=== PATIENT | male | born 1930 | race Caucasian/White ===

== ENCOUNTER 2017-03-21 23:00 | Inpatient (IN) ==
[2017-03-22 00:07] LABS: MANUAL DIFF NEEDED? NO
[2017-03-22 00:13] LABS: URINE SOURCE CATH
[2017-03-22 00:18] LABS: BASO% 0.3 % (0.0-0.8); EOS# 0.01 X1000 (0.0-0.7); EOS% 0.1 % (0.0-10.0); IMM GRAN# 0.09 X1000 (0.0-0.04); IMM GRAN% 0.5 % (0.0-0.5); LYMPH% 9.8 % (20.5-51.1); MCH 30.7 PG (27-31); MCHC 34.8 g/dL (33-37); MCV 88.3 FL (81-99); MONO# 1.62 X1000 (0.11-0.59); MONO% 9.3 % (1.7-9.3); MPV 10.2 FL (7.4-10.4); PLT 258 X1000 (130-400); RBC 5.21 XMIL (4.7-6.1)
[2017-03-22 00:34] LABS: CLARITY GROSS BLOOD (CLEAR); COLOR RED; URINE EPITHELIAL CELLS <10 /HPF (<10); URINE RBC TNTC /HPF (<10); URINE WBC <10 /HPF (<10)
[2017-03-22 00:35] LABS: BILIRUBIN URINE NEGATIVE (NEGATIVE); BLOOD URINE LARGE (NEGATIVE); GLUCOSE URINE NEGATIVE (NEGATIVE); PROTEIN URINE >=300 mg/dL (NEGATIVE)
[2017-03-22 00:36] LABS: LEUKOCYTES URINE NEGATIVE (NEGATIVE); NITRITE URINE NEGATIVE (NEGATIVE); URINE CULTURE NEEDED? YES; UROBILINOGEN URINE 0.2 EU/dL (0.2-1.0)
[2017-03-22 00:45] LABS: AGAP 24; ALBUMIN 3.6 g/dL (3.5-5.0); ALKALINE PHOSPHATASE 111 U/L (32-122); BUN 19 mg/dL (8-22); CALCIUM 8.7 mg/dL (8.8-10.2); CHLORIDE 92 mmol/L (98-107); COSMO 291; GOT 11 U/L (10-34); GPT 11 U/L (10-44); POTASSIUM 4.2 mmol/L (3.5-5.1); SODIUM 133 mmol/L (136-145); TCO2 17 mmol/L (25-35); TOTAL BILIRUBIN 0.57 mg/dL (0.20-1.00); TOTAL PROTEIN 6.9 g/dL (6.3-8.3)
[2017-03-22] MEDS ORDERED: HUMULIN R IV ONE ×2 (02:29→06:06)
--- NOTE | 2017-03-22 02:31 | PROVIDER DOCUMENTATION ---
This chart was entered by Zac Nava Scribe, acting as scribe for Stanislaw Reyes MD. HPI-Male Problem - General Stated Complaint: NEW CATH PLACEMENT, BLEEDING Time Seen by Provider: 03/21/17 23:06 Source: patient Allergies/Adverse Reactions: Patient Allergies Allergy/AdvReac Type Severity Reaction Status Date / Time No Known Allergies Allergy Verified 03/22/17 00:15 Home Medications: Home Medication List Medication Instructions Recorded Confirmed Last Taken Type Aspirin 81 mg PO DAILY 11/10/12 03/22/17 03/21/17 History Glimepiride 1 mg PO DAILY 11/10/12 03/22/17 03/21/17 History Magnesium Oxide [Magnesium] 400 mg PO DAILY 11/10/12 03/22/17 03/21/17 History ATORVAstatin [Lipitor] 10 mg PO QHS 03/09/15 03/22/17 03/21/17 History Quinapril HCl 40 mg PO DAILY 03/09/15 03/22/17 03/21/17 History Clopidogrel [Plavix] 75 mg PO DAILY #1 04/20/15 03/22/17 03/21/17 Rx Meloxicam 7.5 mg PO DAILY #1 04/20/15 03/22/17 03/21/17 Rx - History of Present Illness-Male Nature of Presenting Problem: Pt is a 86 yom who presents to ER with CC of lower abdominal pain and blood coming from penis. Pt reports that his home health nurse changed his suprapubic catheter today at 1500 and pt has since developed lower abdominal pain and blood coming from penis. Pt also complains of fever. Location of Complaint: reports: suprapubic Radiation: reports: none Quality of Pain: reports: aching Severity in ED: reports: moderate Onset/Duration: reports: 4-6 hours ago Timing: reports: still present Urinary Symptoms: reports: other (low abdominal pain; blood coming from penis) Associated Symptoms: reports: fever/chills, other (abdominal pain; blood coming from penis). denies: anxiety, back/neck pain, chest pain, constipation, cough, diarrhea, fatigue, joint pain, loss of appetite, muscle aches, nausea, vomiting , weakness, trouble walking Similar Symptoms Previously?: Yes Recently seen or treated by another doctor?: No Review of Systems - Adult - REVIEW OF SYSTEMS - ADULT Constitutional: reports: fever. denies: chills, fatique, night sweats, weight gain, weight loss Eyes: reports: no symptoms reported Ears, Nose, Mouth & Throat: reports: no symptoms reported Cardiovascular: reports: no symptoms reported Respiratory: reports: no symptoms reported Gastrointestinal: reports: abdominal pain. denies: hematemesis, constipation, diarrhea, difficulty swallowing, frequent heartburn, nausea, poor appetite, rectal bleeding, vomiting Genitourinary: reports: hematuria (Pt reports blood coming from penis, not associated with urination). denies: dysuria, discharge, frequency, flank pain, frequent UTI's, hesitency, incontinence, urinary retention, urgency Musculoskeletal: reports: no symptoms reported Integumentary: reports: no symptoms reported Neurological: reports: no symptoms reported Psychiatric: reports: no symptoms reported Endocrine: reports: no symptoms reported Hematologic/Lymphatic: reports: no symptoms reported Allergic/Immunologic: reports: no symptoms reported All Other Systems: Reviewed and Negative Past History - Adult - PAST MEDICAL HISTORY-ADULT Review of Records: reports: Nursing Assessment Review, Medications Reviewed Cardiovascular: reports: CAD, HTN, hyperlipidemia, [place] Genitourinary: reports: prostatitis, prostate cancer, retention Neurological: reports: CVA Endocrine/Immune: reports: Diabetes - PRIOR SURGERIES/PROCEDURES Surgical/Procedure History: reports: tonsillectomy, CABG, cholecystectomy - IMMUNIZATION STATUS Childhood Immunizations: See Nurse Assessment Flu Vaccine: See Nurse Assessment - FAMILY HISTORY Family History: reviewed, not pertinent Physical Exam-General - PHYSICAL EXAM-ADULT Initial Vital Signs Reviewed: Yes - CONSTITUTIONAL General Appearance: appears well, alert, mild distress - EYES Eyes: PERRL/EOMI, pink conjunctivae - HEAD, EARS, NOSE, MOUTH & THROAT HENMT: normocephalic/atraumatic, moist mucous membranes, normal ENT inspection, TMs normal, pharynx normal. negative: pharyngeal erythema, tonsillar exudate - NECK Neck: non-tender, full range of motion, supple, normal inspection. negative: C- spine tenderness, limited range of motion, lymphadenopathy - RESPIRATORY Respiratory: chest non-tender, lungs clear, normal breath sounds, no pleuratic chest pain, no respiratory distress, no accessory muscle use. negative: respiratory distress, decreased breath sounds, accessory muscle use, wheezing - CARDIOVASCULAR Cardiovascular: normal peripheral pulses, regular rate, rhythm. negative: bradycardia, tachycardia, irregularly irregular - GASTROINTESTINAL (ABDOMEN) Abdominal Exam: normal bowel sounds, soft, no organomegaly, no pulsatile mass, tenderness (suprapubic). negative: non tender, distended - GENITOURINARY Male Genitalia: other (blood coming from penis) - LYMPHATIC Lymphatic: no adenopathy - MUSCULOSKELETAL Back Exam: normal inspection, no CVA tenderness, no vertebral tenderness. negative: CVA tenderness, vertebral tenderness Extremity: normal range of motion, non-tender, normal gait, normal inspection, no pedal edema, no calf tenderness, normal capillary refill, pelvis stable. negative: deformity, erythema, inflammation, swelling, tenderness - SKIN Integumentary: normal color, normal turgor, warm/dry. negative: abrasion(s), diaphoresis, ecchymosis, erythema, laceration(s), swelling, tenderness, warm - NEUROLOGIC Neurologic: hand hide stretcher II-XII nml as tested, grossly normal, no motor/sensory deficits . negative: facial droop, focal weakness, motor weakness, sensory deficit - PSYCHIATRIC Psych/Mental Status: normal mood/affect, normal thought content, normal thought process, oriented x 3 Progress - PLAN OF CARE/RESULTS Progress/Plan/Lab Results: Vital Signs - 8 hr 03/21/17 23:18 Temperature 98.2 F Pulse Rate 63 Respiratory Rate 20 Blood Pressure 162/87 O2 Sat by Pulse Oximetry 97 Laboratory Results - last 24 hr 03/22/17 03/22/17 03/22/17 00:01 00:01 00:01 WBC 17.37 H RBC 5.21 Hgb 16.0 Hct 46.0 MCV 88.3 MCH 30.7 MCHC 34.8 RDW Std Deviation 13.1 Plt Count 258 MPV 10.2 Immature Gran % (Auto) 0.5 Neut % (Auto) 80.0 H Lymph % (Auto) 9.8 L [place] % (Auto) 9.3 Eos % (Auto) 0.1 Baso % (Auto) 0.3 Immature Gran # (Auto) 0.09 H Neut # (Auto) 13.89 H Lymph # (Auto) 1.70 [place] # (Auto) 1.62 H Eos # (Auto) 0.01 Baso # (Auto) 0.06 Sodium 133 L Potassium 4.2 Chloride 92 L Carbon Dioxide 17 L Anion Gap 24 BUN 19 Creatinine 1.0 Estimated GFR/1.73 m2 > 60 BUN/Creatinine Ratio 19 Glucose 508 H* Calculated Osmolality 291 Calcium 8.7 L Total Bilirubin 0.57 AST 11 ALT 11 Alkaline Phosphatase 111 Total Protein 6.9 Albumin 3.6 Globulin 3.3 Albumin/Globulin Ratio 1.1 Urine Source Urine Color Urine Clarity Urine pH Ur Specific [place] Urine Protein Urine Ketones Urine Blood Urine Nitrite Urine Bilirubin Urine Urobilinogen Urine Microscopic RBC Urine WBC Urine Microscopic WBC Ur Epithelial Cells Urine Bacteria Urine Yeast Urine Glucose Acetone Level SMALL A 03/22/17 00:04 WBC RBC Hgb Hct MCV MCH MCHC RDW Std Deviation Plt Count MPV Immature Gran % (Auto) Neut % (Auto) Lymph % (Auto) [place] % (Auto) Eos % (Auto) Baso % (Auto) Immature Gran # (Auto) Neut # (Auto) Lymph # (Auto) [place] # (Auto) Eos # (Auto) Baso # (Auto) Sodium Potassium Chloride Carbon Dioxide Anion Gap BUN Creatinine Estimated GFR/1.73 m2 BUN/Creatinine Ratio Glucose Calculated Osmolality Calcium Total Bilirubin AST ALT Alkaline Phosphatase Total Protein Albumin Globulin Albumin/Globulin Ratio Urine Source CATH Urine Color RED Urine Clarity GROSS BLOOD A Urine pH 7.0 Ur Specific [place] 1.020 Urine Protein >=300 A Urine Ketones 15 A Urine Blood LARGE A Urine Nitrite NEGATIVE Urine Bilirubin NEGATIVE Urine Urobilinogen 0.2 Urine Microscopic RBC TNTC A Urine WBC NEGATIVE Urine Microscopic WBC <10 Ur Epithelial Cells <10 Urine Bacteria NEGATIVE Urine Yeast NONE SEEN Urine Glucose NEGATIVE Acetone Level Orders Category Date Time Status CT ABD/PELVIS W/ IV CONT ONLY [CT] Stat Exams 03/21/17 23:15 Taken BLOOD CULTURE [BLDCUL] Stat Lab 03/22/17 02:28 Uncollected CBC WITH ELECTRONIC DIFF [HEME] Stat Lab 03/22/17 00:01 Completed COMPREHENSIVE METABOLIC PANEL [CHEM] Stat Lab 03/22/17 00:01 Completed Ketone [ACETONE SERUM] [CHEM] Stat Lab 03/22/17 00:01 Completed LACTATE, PLASMA [CHEM] Stat Lab 03/22/17 02:28 Uncollected URINE CULTURE [RM] Routine Lab 03/22/17 00:36 Received 0.9% Sodium Chloride Inj [Ns] 99 ml Med 03/22/17 02:29 Ordered Insulin Human Regular [Humulin R] 100 unit IV Per Protocol Insulin Human Regular [Humulin R] Med 03/22/17 02:29 Once 5 unit IV NOW ONE Result Diagrams: 03/22/17 00:01 03/22/17 00:01 - CT/MRI 1 CT Study: Abdomen, Pelvis Impression: See EMR Report (Indeterminate area of hypoenhancement within the right mid to upper renal medullary tissue. The etiology is indeterminate. Extensive gas within the urinary bladder is indeterminate. Infection is not excluded. Additional nonacute findings listed in report. - Dr. Martin ( Radiologist)) CT Results: See report - CONSULTS/PCP/HOSPITALIST Notification #1 *Consult/PCP/Hospitalist*: Dr. Em (Hospitalist) Time Discussed: 02:26 Consult Disposition: Admit Departure - Departure Date of Disposition Decision: 03/22/17 Time of Disposition Decision: 02:30 DIAGNOSIS: Hematuria DKA (diabetic ketoacidoses) Qualifiers: Diabetes mellitus type: type 1 Diabetes mellitus complication detail: without coma Qualified Code(s): E10.10 - Type 1 diabetes mellitus with ketoacidosis without coma Disposition: ADMITTED INPATIENT 09 Certified Medical Emergency: Emergent Condition: Good Referrals and Follow-Ups: Chino Cervantes [Primary Care Provider] - - Critical Care Note This patient required my direct & personal management of CC.: No This chart was documented by the indicated scribe, (Zac Nava Scribe) and accurately reflects the services I performed and decisions made by me, Stanislaw Reyes MD, as attested by the provider's signature.
[2017-03-22] MEDS ORDERED: NS 1,000 ML IV ONE (02:45)
[2017-03-22] MEDS ORDERED: HUMULIN R 100 UNIT in NS 100 ML IV SCH (03:00)
[2017-03-22] MEDS: ROCEPHIN 1 GM/NS 1 GM/50 ML IVPB IV SCH (03:15)
[2017-03-22 03:20] LABS: ALLEN TEST YES; BE -6.4 mmoll (-3.0-3.0); BLOOD TYPE ARTERIAL; DRAW SITE R RADIAL; METHB 0.8 % (0.0-1.5); O2(CT) 20.4 mL/dL (15.0-23.0); PCO2(98.6) 28 mmHg (35-45); PO2(98.6) 71 mmHg (60-100); SAMPLE BLOOD; THB 15.5 g/dL (11.5-17.4); pH(98.6) 7.39 (7.35-7.45)
[2017-03-22 03:22] LABS: MODALITY ROOM AIR
[2017-03-22 03:25] LABS: HEMOGLOBIN A1C 11.6 % (4.8-6.0)
[2017-03-22] MEDS ORDERED: ZOFRAN IV PRN (03:55)
[2017-03-22] MEDS ORDERED: TYLENOL PO PRN (03:55)
--- NOTE | 2017-03-22 04:44 | HISTORY AND PHYSICAL ---
PRIMARY CARE PROVIDER: Chino Cervantes MD CHIEF COMPLAINT: Bleeding in urine. 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 Dunn, I believe, had a suprapubic catheter placed. This was post to be temporary. However, it has not been reversed as he started having pressure ulcers on his sacrum. These are healing, but they have chosen to leave the suprapubic catheter in at this time. Patient lives at home alone but has 24-hour caregivers. He reportedly had a home health nurse come out today and change his suprapubic catheter at around 3. He started having lower abdomen pain, started having bleeding from the catheter site as well as coming from his urethra. He had a subjective complaint of fever and was being treated for a urinary tract infection. A urine sample was taken by the home health nurse but results were not given at this time. A urine was tested in the emergency room but it was noted to have gross hematuria. A CT scan of the abdomen and pelvis noted an indeterminate area of hypoenhancement within the right mid to upper renal medullary tissue. Etiology is undetermined. There was also extensive gas within the urinary bladder, which is indeterminate. Infection could not be excluded. The patient was also noted as having a blood sugar in the 500s on arrival, with a small amount of acetone. An ABG is pending, but he will be admitted for further evaluation and treatment. PAST MEDICAL HISTORY: 1. Coronary artery disease status post CABG. 2. CVA with residual right-sided weakness. 3. Diabetes mellitus type 2. 4. Hypertension. 5. Hyperlipidemia. 6. BPH, status post surgical intervention. PREVIOUS SURGICAL HISTORY: 1. CABG x2. 2. Prostate surgery. 3. Suprapubic catheter placement. 4. Right hip surgery. 5. Cholecystectomy. FAMILY HISTORY: The patient had a brother who from prostate cancer. I was unable to collect any other family history. SOCIAL HISTORY: Lives alone in [place] with 24-hour caregivers. Does not use alcohol or illicit drugs. Stopped smoking cigarettes 20 years ago. Does use chewing tobacco daily. ALLERGIES: No known drug allergies. HOME MEDICATIONS: 1. Magnesium 400 mg p.o. daily. 2. Glimepiride 1 mg p.o. daily. 3. Aspirin 81 mg p.o. daily. 4. Lipitor 10 mg p.o. at bedtime. 5. Quinapril HCl 40 mg p.o. daily. 6. Meloxicam 7.5 mg p.o. daily. 7. Plavix 75 mg p.o. daily. REVIEW OF SYSTEMS: Fourteen point review of systems conducted with the patient. Pertinent positives listed above in the HPI. All other systems reviewed and found to be negative. PHYSICAL EXAMINATION: VITAL SIGNS: Temperature 98.2 degrees, pulse 63, respirations 20, blood pressure 162/87, oxygen saturation 97% on room air. GENERAL: A pleasant 86-year-old male. Daughter is at the bedside. Answers most questions appropriately and is in no acute distress. HEENT: Head is atraumatic, normocephalic. Pupils equal, round, react to light. Extraocular eye movement intact. Sclerae is anicteric. Conjunctivae is pink. Oral mucosa is dry. NECK: Supple. No JVD. Trachea is midline. No thyromegaly. CARDIAC: S1-S2 appreciated. No murmurs, gallops, rubs. LUNGS: Clear to auscultation bilaterally. No rhonchi, wheezes or rales. Symmetrical rise and fall with respirations. ABDOMEN: Soft, nondistended. Tender in the suprapubic area around the catheter. Blood noted around the catheter which has gauze around it. Bowel sounds noted in all 4 quadrants. Normoactive. No pulsatile mass. No organomegaly. EXTREMITIES: No clubbing, cyanosis, or edema. GENITOURINARY: Suprapubic catheter. Draining bright red blood. Blood was also noted coming out of the urethra. EXTREMITIES: No clubbing, cyanosis, or edema. NEUROLOGICAL: Oriented to person, place, and situation. Cranial nerves 2-12 appear to be grossly intact. DIAGNOSTIC DATA: CT of the abdomen and pelvis showed an indeterminate area of hypoenhancement within the right mid to upper renal medullary tissue. The etiology is indeterminate. Extensive gas within the urinary bladder is indeterminate. Infection is not excluded. LABORATORY DATA: WBC 7.37, hemoglobin 16, hematocrit 46, platelet count 258,000. ABG is pending. Sodium 133, potassium 4.2, chloride 92, carbon dioxide 17, BUN 19, creatinine 1, glucose 509, hemoglobin A1c 11.6. Urine was noted to be gross bleeding, 15 ketone bodies, greater than 300 protein, too numerous to count RBCs, a small amount of acetone. ASSESSMENT AND PLAN: 1. Gross hematuria after having a suprapubic catheter placed. The patient's urologist is Dr. Dunn, we will consult him. Recheck hemoglobin and hematocrit in a.m. 2. Diabetes mellitus type 2 with hyperglycemia. Patient's blood sugar was noted to be over 500 on arrival. Arterial blood gases is pending. He does have small amounts of acetone and 15 ketone bodies. However, it is doubtful that he is in diabetic ketoacidosis more likely hyperosmolar hyperglycemic state or very early diabetic ketoacidosis. At any rate, he will be started on an insulin drip and placed in the intensive care unit. Normal saline will given for fluid repletion. 3. Hypertension. Continue home medications. 4. Hyperlipidemia. Continue home medication. 5. Questionable urinary tract infection. There was no bacteria noted in the urine sample. However, it was also noted to be grossly bloody. Patient does have leukocytosis. We will start on Rocephin at this time. He was being treated outpatient for a urinary tract infection. Further recommendations per patient clinical course. Dictated by KANIKA Jiménez for Fede Em MD cc: KANIKA Jiménez MD Jay Pohl, MD
[2017-03-22] MEDS ORDERED: NS 1,000 ML IV SCH (05:35)
[2017-03-22] MEDS ORDERED: D50W SYRINGE IV PRN (06:06)
[2017-03-22] MEDS ORDERED: POTASSIUM CHLORIDE 20 MEQ in NS 100 ML IV PRN (06:06)
[2017-03-22] MEDS ORDERED: POTASSIUM CHLORIDE 40 MEQ in NS 250 ML IV PRN (06:06)
[2017-03-22] MEDS ORDERED: MAGNESIUM SULFATE 2 GM/S.W.I. 2 GM/50 ML IVPB IV PRN (06:06)
[2017-03-22] MEDS ORDERED: HUMULIN R 100 UNIT in NS 99 ML IV SCH (06:06)
[2017-03-22] MEDS ORDERED: ZOFRAN PO PRN (06:06)
[2017-03-22] MEDS ORDERED: SODIUM PHOSPHATE 30 MMOL in D5W 250 ML IV PRN (06:06)
[2017-03-22] MEDS ORDERED: TYLENOL PR PRN (06:06)
--- NOTE | 2017-03-22 06:33 | Diag Imaging Result Doc PS360 ---
EXAM: CT ABD/PELVIS W/ IV CONT ONLY HISTORY: SUPRAPUBIC REPLACED, NOW HEMATURIA, BLOOD FROM PEN TECHNIQUE: Dose reduction protocol COMPARISON: 03/11/2015 FINDINGS: There is fatty infiltration of the liver. The gallbladder has been removed. Spleen is not enlarged. Normal pancreas and adrenal glands. There areas within each kidney with decreased enhancement. Mild dilatation to each ureter. No renal stones. Prominent atherosclerosis. No aneurysmal dilatation to the aorta. There is a suprapubic catheter. There is a large amount of adherent debris within the urinary bladder. Trace free pelvic fluid. There are fat filled inguinal hernias. No bowel loops within these. No bowel obstruction. Normal appendix. No abscess. Prior orthopedic replacement of the right hip. 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 2.Prominent atherosclerosis 3.Mild fatty infiltration of the liver 4.Prominent atherosclerosis 5.Bilateral fat filled inguinal hernias 6.A preliminary report was given at 2:11 AM Electronically signed by Francisco Chong 03/22/2017 6:31 AM
[2017-03-22] MEDS: NS 1,000 ML IV SCH ×6 (06:34→18:39)
[2017-03-22 06:53] LABS: MANUAL DIFF NEEDED? NO
[2017-03-22 06:56] LABS: BASO% 0.1 % (0.0-0.8); HEMATOCRIT 41.1 % (42.0-52.0); HEMOGLOBIN 14.3 g/dL (14.0-18.0); IMM GRAN# 0.04 X1000 (0.0-0.04); IMM GRAN% 0.3 % (0.0-0.5); LYMPH# 2.55 X1000 (1.2-3.4); LYMPH% 21.6 % (20.5-51.1); MCH 30.4 PG (27-31); MCHC 34.8 g/dL (33-37); MCV 87.4 FL (81-99); MONO% 7.6 % (1.7-9.3); NEUT% 70.4 % (42.2-75.2); PLT 224 X1000 (130-400)
[2017-03-22 07:08] LABS: AGAP 17; BUN 18 mg/dL (8-22); CALCIUM 8.1 mg/dL (8.8-10.2); CHLORIDE 97 mmol/L (98-107); COSMO 281; POTASSIUM 3.9 mmol/L (3.5-5.1); SODIUM 134 mmol/L (136-145); TCO2 20 mmol/L (25-35)
[2017-03-22 07:09] LABS: MAGNESIUM 1.9 mg/dL (1.5-2.7)
[2017-03-22] MEDS ORDERED: ASPIRIN PO SCH (09:00)
[2017-03-22] MEDS ORDERED: PLAVIX PO SCH (09:00)
[2017-03-22] MEDS: ACCUPRIL PO SCH (09:17)
[2017-03-22] MEDS: MAG-OX PO SCH (09:17)
[2017-03-22 10:05] LABS: AGAP 17; BUN 19 mg/dL (8-22); CHLORIDE 100 mmol/L (98-107); COSMO 278; POTASSIUM 4.6 mmol/L (3.5-5.1); SODIUM 134 mmol/L (136-145); TCO2 17 mmol/L (25-35)
--- NOTE | 2017-03-22 15:30 | CONSULTATION ---
DATE OF CONSULTATION: 03/22/2017 ATTENDING AND REFERRING PHYSICIAN: Hospitalist. HISTORY OF PRESENT ILLNESS: This 86-year-old male has a history of a neurogenic bladder. This was initially put in about 2 years ago. He had a suprapubic tube placed about 2 years ago. This is changed monthly by home health. The patient states it was last changed about 2 days ago when he developed bleeding. He states there is blood coming out around the catheter, through the catheter and through his penis. He states he has severe urgency and has a urge to have a bowel movement. He states he has not seen any blood in his stool. The patient is on Plavix. PAST MEDICAL HISTORY: Coronary artery disease, diabetes, hypertension, elevated cholesterol, peripheral vascular disease. CURRENT MEDICATIONS: Documented on the chart and include Flomax, Plavix and 81 mg of aspirin each day. PAST SURGICAL HISTORY: Cholecystectomy, right hip replacement, right CEA, coronary artery bypass grafting, transurethral resection of the prostate and placement of a suprapubic tube in April 2015. SOCIAL HISTORY: He denies cigarette use but chews tobacco. He denies alcohol use. ALLERGIES: No known drug allergies. REVIEW OF SYSTEMS: He states usually he feels well. He denies any problems with pulmonary or bowel problems. He did have a stroke and has some residual weakness but overall was doing well until 2 days ago. PHYSICAL EXAMINATION: General: A normally developed, well-nourished, age apparent, white male, oriented in all ways and cooperative. HEENT: Normal for age. Lungs: Clear. Cardiovascular: Regular rate and rhythm. Abdomen: Mildly obese, soft. There is a suprapubic tube in place with blood around the suprapubic tube and blood through the suprapubic tube. There are no palpable masses. : Uncircumcised male. Foreskin retracts. Both testes are down. There is a clot at the urethral meatus. No inguinal hernias noted. Rectal Exam: Deferred until surgery. Extremities: No clubbing, cyanosis, or edema. Neuro: No focal deficits. DIAGNOSTIC DATA: CT scan of the abdomen does not show any hydronephrosis. However there is material inside the bladder probable blood clot with air. The suprapubic tube is in place in the bladder. LABORATORY EVALUATION: Has a white count of 11.78, hemoglobin of 14.3, hematocrit of 41.1, platelets are 224,000 but the patient has been taking Plavix. Serum electrolytes have a sodium of 134, potassium 4.6, chloride 100, bicarb 17, BUN 19, creatinine 0.8. Serum blood sugar at admission was 508. The most recent fingerstick was 206. Urinalysis had too numerous to count red cells, no white cells present. Bacteria was negative. IMPRESSION: 1. Clot retention probably due to anticoagulation. 2. Neurogenic bladder with indwelling suprapubic tube. PLAN: Cystoscopic exam, clot irrigation. Fulgurate any bleeding areas. The planned procedure, benefits versus risks, and possible complications, including, but not limited to continued bleeding, infection, not finding a source of bleeding, need for further surgery was discussed. He seems to understand and desires to proceed. cc: Antonio Dunn MD
[2017-03-22] MEDS ORDERED: FENTANYL ONE (15:36)
[2017-03-22] MEDS ORDERED: DIPRIVAN 1% ONE (15:36)
--- NOTE | 2017-03-22 15:42 | OPERATIVE NOTE ---
PROCEDURE DATE: 03/22/2017 SURGEON: Antonio Dunn MD PREOPERATIVE DIAGNOSIS: Neurogenic bladder with clot retention and anticoagulated. POSTOPERATIVE DIAGNOSIS: Neurogenic bladder with clot retention and anticoagulated. PROCEDURE PERFORMED: 1. Cystoscopic exam, clot irrigation, fulguration of bleeding areas. 2. Change suprapubic tube. ANESTHESIA: General via laryngeal mask. FINDINGS: Cystoscopic exam: Urethra-greater than 21 [place]ese without stricture. Prostate-status post TURP with wide open channel, minimal lateral lobes, mildly elevated bladder neck. Bladder- large amount of clot old and new in the bladder. After the relative new clot was irrigated out, ureteral orifices were normal, grade 3 trabeculations, cellules and diverticula throughout. There was still a large amount of old clot in the bladder they could not be easily removed. There were diffuse bleeding areas throughout secondary to his anticoagulation. Many of these were fulgurated where bleeding vessels could be seen. The old suprapubic tube was removed and a new 20- [place]ese silicone Vila was placed. No papillary lesions seen. There was still a large amount of old rubbery clot clinging to the dome and anterior wall that could not be removed. After his platelets recover will bring him back to fully remove all clots using the resectoscope. Rectal exam revealed a prostate of about 30-40 g with a TURP defect in the midline at the base. INDICATION FOR PROCEDURE: This 86-year-old male has a history of neurogenic bladder. He also has coronary artery and peripheral vascular disease. He is on Plavix. The patient states that 2 days ago he developed increased gross hematuria and then clot retention. He has a large amount of suprapubic pain and states he has needs to have the clot removed. DESCRIPTION OF PROCEDURE: After informed consent was obtained from the patient and him receiving IV antibiotics, he was taken to the main OR cystoscopy room, placed in the supine position. General anesthesia via laryngeal mask was achieved. He was then placed in low lithotomy position and prepped and draped in the usual sterile fashion for cystoscopic exam. A 21-Tai[place]ese sheath cystoscope was passed through the patient's urethra, prostate, and into the bladder. The large amount of clot was irrigated from the bladder. The old rubbery clot partially was removed using the grasping forceps. The patient had diffuse oozing throughout. The Bugbee electrode was placed and hemostasis was somewhat achieved from any bleeding vessels that were seen on the posterior wall both upper and lower and close to the suprapubic tube. The Bugbee electrode was placed. The suprapubic tube was changed under direct vision and a new 20-[place]ese silicone catheter was placed, 10 mL of sterile water were placed in the Vila balloon. The Vila catheter was plugged. The bladder was distended, the cystoscope removed. A 22-Tai[place]ese, 3-way silicone Vila was passed through the patient's urethra, prostate, and bladder without difficulty. 20 mL of sterile water were placed in this balloon. Continuous bladder irrigation of normal saline was started going in through the suprapubic tube and out the bottom catheter. The irrigation port on the urethral catheter was plugged. A rectal exam was performed. He tolerated the procedure well. About 300 mL of old clot was removed from the bladder. The blood loss during the case was about 25 mL. He tolerated procedure well and was taken to recovery room in good condition. cc: Antonio Dunn MD
[2017-03-22] MEDS ORDERED: LOPRESSOR PO ONE (18:02)
[2017-03-22] MEDS: NORCO-10 PO PRN (18:09)
[2017-03-22 18:48] LABS: AGAP 17; BUN 20 mg/dL (8-22); CALCIUM 7.5 mg/dL (8.8-10.2); CHLORIDE 102 mmol/L (98-107); COSMO 282; POTASSIUM 3.3 mmol/L (3.5-5.1); SODIUM 139 mmol/L (136-145); TCO2 20 mmol/L (25-35)
[2017-03-22] MEDS: D5 NS 1,000 ML IV PRN (19:04)
[2017-03-22] MEDS ORDERED: CARDIZEM 100 MG/NS 100 MG/100 ML IVPB IV SCH (19:32)
[2017-03-22 22:28] LABS: AGAP 14; BUN 20 mg/dL (8-22); CALCIUM 7.2 mg/dL (8.8-10.2); CHLORIDE 104 mmol/L (98-107); COSMO 294; POTASSIUM 3.1 mmol/L (3.5-5.1); SODIUM 140 mmol/L (136-145); TCO2 22 mmol/L (25-35)
[2017-03-23] MEDS: LIPITOR PO SCH ×2 (00:31→23:33)
[2017-03-23] MEDS: NORCO-10 PO PRN (00:31)
[2017-03-23] MEDS: D5 NS 1,000 ML IV PRN ×2 (01:24→08:36)
[2017-03-23] MEDS: NS 1,000 ML IV SCH ×4 (02:49→23:33)
[2017-03-23] MEDS: ROCEPHIN 1 GM/NS 1 GM/50 ML IVPB IV SCH (02:49)
[2017-03-23 04:40] LABS: AGAP 13; BUN 22 mg/dL (8-22); CALCIUM 7.4 mg/dL (8.8-10.2); CHLORIDE 103 mmol/L (98-107); COSMO 286; SODIUM 138 mmol/L (136-145); TCO2 22 mmol/L (25-35)
[2017-03-23 06:41] LABS: AGAP 14; BUN 25 mg/dL (8-22); CALCIUM 7.3 mg/dL (8.8-10.2); CHLORIDE 105 mmol/L (98-107); COSMO 292; POTASSIUM 4.3 mmol/L (3.5-5.1); SODIUM 141 mmol/L (136-145); TCO2 22 mmol/L (25-35)
[2017-03-23 06:52] LABS: BASO% 0.1 % (0.0-0.8); HEMATOCRIT 35.7 % (42.0-52.0); HEMOGLOBIN 12.1 g/dL (14.0-18.0); IMM GRAN# 0.45 X1000 (0.0-0.04); IMM GRAN% 2.3 % (0.0-0.5); LYMPH# 1.46 X1000 (1.2-3.4); LYMPH% 7.4 % (20.5-51.1); MANUAL DIFF NEEDED? YES; MCH 30.6 PG (27-31); MCHC 33.9 g/dL (33-37); MCV 90.4 FL (81-99); MONO# 1.11 X1000 (0.11-0.59); MONO% 5.6 % (1.7-9.3); NEUT% 84.6 % (42.2-75.2); PLT 182 X1000 (130-400); RBC 3.95 XMIL (4.7-6.1)
[2017-03-23 07:52] LABS: BANDS 30 % (0-1); LYMPHS 12 % (21-51); MONO 2 % (1-9)
[2017-03-23] MEDS: ACCUPRIL PO SCH (08:46)
[2017-03-23] MEDS: MAG-OX PO SCH (08:47)
[2017-03-23] MEDS ORDERED: LOPRESSOR PO SCH (09:00)
--- NOTE | 2017-03-23 10:15 | PROGRESS NOTE ---
DATE: 03/23/2017 SUBJECTIVE: Patient reports feeling fine. Denies any fever, chills, nausea, or vomiting. OBJECTIVE: Vital Signs: Temperature 98 degrees, heart rate 83, respiratory rate 16, blood pressure 111/57, O2 saturation 97% on room air. General Examination: This is an 86-year-old, male, lying in bed, in no acute distress. HEENT: Head is normocephalic and atraumatic. Anicteric sclerae and pale conjunctivae. Mucous membranes moist. Neck: Supple. No JVD noted. No carotid bruits. No lymphadenopathy. No thyromegaly. Cardiovascular Examination: S1 and S2 heard. No murmurs, gallops, or rubs. Tachycardic. Respiratory Examination: Clear bilaterally to auscultation. No work of breathing or using accessory muscles. Abdomen: Soft. Nontender to palpation. Bowel sounds present. No organomegaly. Suprapubic catheter in place. Extremities: No clubbing, cyanosis, or edema. Peripheral pulses present in both legs. Neurological Examination: Patient is alert and oriented x3. Moves 4 extremities. Laboratory Data: White cell count 19.71, hemoglobin 12.1, hematocrit 35.7, platelets 182,000. BMP is unremarkable except glucose 204. ASSESSMENT/PLAN: 1. Gross hematuria. Patient has been evaluated by Dr. Dunn yesterday. He was taken to the operating room where a cystoscopic examination, clot irrigation, and fulguration of bleeding areas were performed. By now, the patient is not having any hematuria. He is not complaining of any burning on urination. Our plan is to keep him in the hospital until this bleeding resolves. Today, we are going to transfer him to a regular floor. If tomorrow, he is not having any bleeding, from a urology standpoint, patient will be good to be discharged. 2. Mild diabetic ketoacidosis. The anion gap has closed so we are going to start Lantus and also sliding scale insulin. At discharge, patient will be put back to his usual home medications. 3. Sinus tachycardia. Patient yesterday had sinus tachycardia that sometimes was reaching 150s- 160s so he was started on beta-blockers but the blood pressure has dropped dramatically. At this time, we prefer to just stop the other blood pressure medications like quinapril and we will provide tiny doses of metoprolol; in this case, 12.5 mg by mouth twice a day but of course, we will hold dose if blood pressure is lower than 100. 4. Hypertension. Patient's antihypertensive medication has been held. 5. Hyperlipidemia. We will continue home medications. 6. Questionable urinary tract infection. Patient is on ceftriaxone and the urine culture is still pending. cc: Emeterio Gray MD MTDD
[2017-03-23 10:37] LABS: AGAP 12; BUN 25 mg/dL (8-22); CALCIUM 7.2 mg/dL (8.8-10.2); CHLORIDE 105 mmol/L (98-107); COSMO 282; POTASSIUM 4.2 mmol/L (3.5-5.1); SODIUM 137 mmol/L (136-145); TCO2 20 mmol/L (25-35)
[2017-03-23] MEDS: HUMALOG SUBQ SCH ×3 (15:43→23:51)
[2017-03-23] MEDS ORDERED: INSULIN PEN NEEDLES ONE (17:01)
[2017-03-23] MEDS: LANTUS SUBQ SCH (17:16)
[2017-03-23] MEDS: LOPRESSOR PO SCH (23:34)
[2017-03-24] MEDS: ROCEPHIN 1 GM/NS 1 GM/50 ML IVPB IV SCH (04:13)
[2017-03-24 05:39] LABS: MANUAL DIFF NEEDED? NO
--- NOTE | 2017-03-24 05:45 | EKG Report ---
Test Performed on : 03/22/2017 5:40:13 PM Test Reason : No Order in KuponGid Blood Pressure : / mmHG Vent. Rate : 131 BPM Atrial Rate : 117 BPM P-R Int : 000 ms QRS Dur : 130 ms QT Int : 342 ms P-R-T Axes : 000 092 -08 degrees QTc Int : 505 ms Atrial fibrillation. with rapid ventricular response. with premature ventricular or aberrantly condu cted complexes. Right bundle branch block Inferior infarct (cited on or before 22-MAR-2017) T wave abnormality, consider lateral ischemia Abnormal ECG When compared with ECG of 22-MAR-2017 15:25, (Unconfirmed) Atrial fibrillation. has replaced Junctional rhythm. Left anterior fascicular block is no longer present Right bundle branch block is now present Confirmed by Darci DENTON, Rhett Harrison ([id number]) on 03/25/2017 8:33:08 AM
--- NOTE | 2017-03-24 05:45 | EKG Report ---
Test Performed on : 03/22/2017 05:40:34 AM Test Reason : No Order in [place] Blood Pressure : / mmHG Vent. Rate : 120 BPM Atrial Rate : 127 BPM P-R Int : 240 ms QRS Dur : 132 ms QT Int : 362 ms P-R-T Axes : 000 079 007 degrees QTc Int : 511 ms Sinus tachycardia. with 1st degree AV block. Right bundle branch block Possible Inferior infarct , age undetermined Abnormal ECG No previous ECGs available Confirmed by Darci DENTON, Rhett Harrison ([id number]) on 03/25/2017 8:25:42 AM
--- NOTE | 2017-03-24 05:45 | EKG Report ---
Test Performed on : 03/22/2017 3:25:56 PM Test Reason : No Order in ethology Blood Pressure : / mmHG Vent. Rate : 105 BPM Atrial Rate : 071 BPM P-R Int : 000 ms QRS Dur : 102 ms QT Int : 524 ms P-R-T Axes : 000 -48 -06 degrees QTc Int : 692 ms Sinus tachycardia. Left anterior fascicular block Inferior infarct (cited on or before 22-MAR-2017) Prolonged QT Abnormal ECG When compared with ECG of 22-MAR-2017 05:40, (Unconfirmed) Left anterior fascicular block is now present Right bundle branch block is no longer present Confirmed by Darci DENTON, Rhett Harrison ([id number]) on 03/25/2017 8:43:55 AM
[2017-03-24 05:47] LABS: BASO% 0.1 % (0.0-0.8); EOS# 0.12 X1000 (0.0-0.7); EOS% 0.9 % (0.0-10.0); HEMATOCRIT 33.7 % (42.0-52.0); HEMOGLOBIN 11.2 g/dL (14.0-18.0); IMM GRAN# 0.05 X1000 (0.0-0.04); IMM GRAN% 0.4 % (0.0-0.5); LYMPH# 1.57 X1000 (1.2-3.4); LYMPH% 11.8 % (20.5-51.1); MCH 30.4 PG (27-31); MCHC 33.2 g/dL (33-37); MCV 91.3 FL (81-99); MONO# 0.79 X1000 (0.11-0.59); MONO% 5.9 % (1.7-9.3); MPV 10.2 FL (7.4-10.4); NEUT% 80.9 % (42.2-75.2); PLT 164 X1000 (130-400); RBC 3.69 XMIL (4.7-6.1)
[2017-03-24 06:05] LABS: AGAP 10; BUN 20 mg/dL (8-22); CALCIUM 7.2 mg/dL (8.8-10.2); CHLORIDE 106 mmol/L (98-107); COSMO 280; SODIUM 137 mmol/L (136-145); TCO2 21 mmol/L (25-35)
[2017-03-24] MEDS ORDERED: TUMS PO PRN (08:39)
[2017-03-24] MEDS ORDERED: NEO-SYNEPHRINE ONE (09:37)
[2017-03-24] MEDS ORDERED: LR 1,000 ML ONE (09:37)
[2017-03-24] MEDS ORDERED: BREVIBLOC ONE (09:37)
[2017-03-24] MEDS ORDERED: XYLOCAINE-MPF 2% ONE (09:37)
[2017-03-24] MEDS: LOPRESSOR PO SCH (10:01)
[2017-03-24] MEDS: MAG-OX PO SCH (10:01)
[2017-03-24] MEDS: LANTUS SUBQ SCH (10:02)
[2017-03-24 11:07] VITALS: BP 171/79
[2017-03-24] MEDS: HUMALOG SUBQ SCH (11:21)
--- NOTE | 2017-03-25 06:39 | DISCHARGE SUMMARY ---
ADMISSION DATE: 03/22/2017 DISCHARGE DATE: 03/24/2017 CONSULTATIONS: Dr. Antonio Dunn with urology. PERTINENT PROCEDURES: 1. Abdomen and pelvis CT showed bilateral pyelonephritis in addition to emphysematous cystitis, prominent atherosclerosis, mild fatty infiltration of the liver, prominent atherosclerosis, bilateral fat filled inguinal hernias. 2. Cystoscopic exam, clot irrigation, fulguration of bleeding areas, change in suprapubic tube by Dr. Dunn. DISCHARGE DIAGNOSES: 1. Gross hematuria, status post cystoscopic exam, clot irrigation, and fulguration of bleeding areas with change of suprapubic tube performed by Dr. Dunn. Improved. 2. Mild diabetic ketoacidosis. Anion gap is closed. Initiated Lantus on admission. Patient will be discharged back on his usual medications. Resolved. 3. Sinus tachycardia. Continue on home beta sridevi. 4. Hypertension. The patient was actually hypotensive on admission. Will continue on low-dose beta sridevi. His hypotension resolved. He will resume back on his SKYE as well. 5. Questionable urinary tract infection. Continue oral antibiotics. HOSPITAL COURSE: Mr. Greenfield is an 86-year-old male who carries a past medical history of coronary artery disease, status post CABG, CVA with residual right-sided weakness, diabetes mellitus type 2, hypertension, hyperlipidemia, BPH - status post surgical intervention, and suprapubic catheter. The suprapubic catheter was supposed to be temporary. However, it had not been reversed. He started having pressure ulcers on the sacrum that are now healing but they have chosen to leave the suprapubic catheter in. The patient lives at home alone but does have 24 hour caregivers. He reportedly had a home health nurse who came out to change his catheter on the day of his admission. He started having lower abdominal pain with some bleeding from the catheter site as well as coming from his urethra, and subjective complaint of fever, and was being treated for a urinary tract infection. His urine was tested in the emergency room and noted to have gross hematuria. A CT scan of the abdomen and pelvis showed that the patient may have bilateral pyelonephritis in addition to emphysematous cystitis. The patient was admitted with a urology consult. Started on IV antibiotics, as well as IV fluids, as well as sliding scale insulin with patterned sugars. The patient underwent a cystoscopic exam by Dr. Dunn with clot irrigation, fulguration of bleeding areas, and change of suprapubic tube. The patient's hematuria resolved. He was not complaining of any burning or abdominal pain. He was moved out of the ICU to the regular floor. The patient's anion gap closed. He was started on Lantus while he was in the hospital. He will resume his regular medications at home. The patient did have some sinus tachycardia reaching 150s and 160s. He was started on a low-dose beta sridevi but his pressure dropped dramatically. Initially, his quinapril was stopped. His pressures did come back. Again, he was stable enough to go to the floor where he was evaluated overnight. The patient has remained stable. He is appropriate for discharge home today with his regular home health. Vital signs, temperature is 98.2 degrees, heart rate 86, respirations 16, blood pressure 140/73, O2 saturation is 98% on room air. DISCHARGE DIET: Diabetic. DISCHARGE MEDICATIONS: 1. Lipitor 10 mg p.o. at bedtime. 2. Omnicef 300 mg p.o. b.i.d. 3. [place] 10 one each p.o. q.4 hours p.r.n. pain. 4. Lantus 20 units subcutaneous q.a.m. 5. Magnesium 400 mg p.o. b.i.d. 6. Lopressor 25 mg p.o. b.i.d. 7. Quinapril 40 mg p.o. daily. FOLLOWUP: The patient is being discharged home. He will follow up with Dr. Dunn on 03/26/2017 at 1:50 p.m. as well as his primary care physician, Dr. Chino Cervantes, and his home health agency, [facility]. The patient can return to the ED for any worsening of symptoms. Dictated by KANIKA Rojas for Emeterio Gray MD cc: MD Chino Urrutia MD MTDD
== END 2017-03-24 11:27 | disposition home health service (06) ==
LOC: ED 23:00 → SUATTDRO 03-22 03:11 → ICU 03-22 03:11 → 4N 03-23 12:00
PROVIDERS: ATTEND Internal Medicine

== ENCOUNTER 2017-03-27 05:52 | Observation (INO) ==
[2017-03-27] MEDS ORDERED: LR 1,000 ML ONE (06:43)
[2017-03-27] MEDS ORDERED: KEFZOL 2 GM/D5W 2 GM/50 ML IVPB ONE (06:43)
[2017-03-27] MEDS ORDERED: REGLAN ONE (06:43)
[2017-03-27] MEDS ORDERED: PEPCID ONE (06:43)
[2017-03-27 06:47] LABS: HEMATOCRIT 36.8 % (42.0-52.0); HEMOGLOBIN 12.4 g/dL (14.0-18.0); MCH 30.2 PG (27-31); MCHC 33.7 g/dL (33-37); MCV 89.5 FL (81-99); MPV 9.7 FL (7.4-10.4); RBC 4.11 XMIL (4.7-6.1)
[2017-03-27] MEDS ORDERED: LOPRESSOR ONE (07:07)
[2017-03-27 07:09] LABS: AGAP 12; BUN 7 mg/dL (8-22); CALCIUM 8.5 mg/dL (8.8-10.2); CHLORIDE 100 mmol/L (98-107); COSMO 284; SODIUM 139 mmol/L (136-145); TCO2 27 mmol/L (25-35)
[2017-03-27] MEDS: NEOSPORIN G.U. IRRIGANT ONE ×2 (08:21→09:33)
[2017-03-27] MEDS ORDERED: DILAUDID ONE (09:59)
[2017-03-27] MEDS ORDERED: DIPRIVAN 1% ONE (10:00)
[2017-03-27] MEDS ORDERED: FENTANYL ONE (10:00)
--- NOTE | 2017-03-27 10:17 | OPERATIVE NOTE ---
PROCEDURE DATE: 03/27/2017 PREOPERATIVE DIAGNOSIS: History of neurogenic bladder with urinary retention with indwelling suprapubic tube and clot retention. POSTOPERATIVE DIAGNOSES: 1. History of neurogenic bladder with urinary retention with indwelling suprapubic tube and clot retention. 2. Large bladder tumor. PROCEDURE PERFORMED: Cystoscopic exam, transurethral resection of bladder tumor (greater than 5 cm2). SURGEON: Antonio Dunn M.D. ANESTHESIA: General via laryngeal mask. FINDINGS: Cystoscopic exam: Urethra greater than 28-Armenian without stricture. Prostate: Status post TURP with wide open channel. Mildly elevated bladder neck, length approximately 3 cm. Bladder: Normal ureteral orifices bilaterally. Grade 3 trabeculations, cellules, and diverticula throughout. There was a large old clot that was attached to the dome over what appeared to be a large tumor. INDICATION FOR PROCEDURE: This 86-year-old male has a history of neurogenic bladder. He is several years status post TURP with placement of a suprapubic tube. The suprapubic tube has been changed by home health. The patient states he had intermittent gross hematuria for nearly a year. He is on Plavix. The patient developed clot retention, and underwent cystoscopic exam with clot irrigation approximately 5 days ago, at which time the Plavix was stopped. He returns today for repeat cystoscopy. DESCRIPTION OF PROCEDURE: After informed consent was obtained from the patient and daughter, and him receiving IV antibiotics, he was taken to the main OR cystoscopy room, placed in the supine position. General anesthesia via laryngeal mask was achieved. He was then placed in the low lithotomy position, and prepped and draped in the usual sterile fashion for cystoscopic exam. A 21-Armenian cystoscope was passed through the patient's urethra, prostate, and into the bladder. The grasping forceps were placed, and this clot was so large that it could not be grasped out with the grasping forceps. It was so rubbery, it would not irrigate through the cystoscope. The cystoscope was removed. The 28-Armenian continuous flow resectoscope sheath was placed. The thin gyrus loop electrode was placed, and hemostasis was achieved through the prostatic urethra and trigone area, staying away from the ureteral orifices. The large clot was resected, and as it got closer to the bladder dome, it appeared like it was tissue. Approximately 3/4 of the amount were removed, when it was decided to return in 24 hours to allow his platelets to recover more. The amount of clot\tumor that was removed was significant, greater than 5 cm in diameter. There is still a large amount left. This could be a bladder tumor. The part that was resected was sent to Pathology. The suprapubic tube had normal saline attached, such that saline would go in the suprapubic tube, and a 22-Armenian 2-way Vila was passed through the patient's urethra, prostate, and into the bladder, 10 mL of sterile water were placed in Vila's balloon, and the water will come out of the bladder through the Vila catheter. He tolerated the procedure well. Estimated blood loss was about 25 mL. He was taken to the recovery room in good condition. cc: Antonio Dunn MD MTDD
[2017-03-27] MEDS ORDERED: NS 1,000 ML ONE (10:39)
[2017-03-27] MEDS ORDERED: LABETALOL IV PRN (10:51)
[2017-03-27] MEDS ORDERED: TYLENOL PO PRN (10:51)
[2017-03-27] MEDS ORDERED: PHENERGAN PR PRN (10:51)
[2017-03-27] MEDS ORDERED: BENADRYL IV PRN (10:51)
[2017-03-27] MEDS ORDERED: B & O 15A SUPP PR PRN (10:51)
[2017-03-27] MEDS ORDERED: DITROPAN PO PRN (10:51)
[2017-03-27] MEDS ORDERED: NORCO-7.5 PO PRN (10:51)
[2017-03-27] MEDS ORDERED: BENADRYL LIQUID PO PRN (10:51)
[2017-03-27] MEDS ORDERED: PHENERGAN PO PRN (10:51)
[2017-03-27] MEDS ORDERED: PHENERGAN IV PRN (10:51)
[2017-03-27] MEDS ORDERED: SODIUM CHLORIDE 0.9% INJ PRN (10:51)
[2017-03-27] MEDS ORDERED: ZOFRAN ONE (11:10)
[2017-03-27] MEDS ORDERED: LABETALOL (DOSE) ONE (11:10)
[2017-03-27] MEDS ORDERED: XYLOCAINE-MPF 2% ONE (11:10)
[2017-03-27] MEDS: KEFZOL 1 GM/D5W 1 GM/50 ML IVPB IV SCH ×2 (14:59→23:41)
[2017-03-27] MEDS: PERIDEX MT SCH ×2 (15:01→21:01)
[2017-03-27] MEDS ORDERED: MOTRIN PO PRN (17:45)
[2017-03-27] MEDS ORDERED: NORCO-10 PO PRN (17:45)
[2017-03-27] MEDS: COLACE PO SCH (21:01)
[2017-03-27] MEDS: LIPITOR PO SCH (21:01)
[2017-03-27] MEDS: HUMULIN R SUBQ SCH (21:01)
[2017-03-27] MEDS: LOPRESSOR PO SCH (23:05)
[2017-03-27] MEDS: PEPCID PO SCH (23:05)
[2017-03-27] MEDS: NS 1,000 ML IV SCH (23:06)
[2017-03-28] MEDS: HUMULIN R SUBQ SCH ×4 (02:46→21:41)
[2017-03-28 06:25] LABS: HEMATOCRIT 41.2 % (42.0-52.0); HEMOGLOBIN 14.1 g/dL (14.0-18.0); MCH 30.7 PG (27-31); MCHC 34.2 g/dL (33-37); MCV 89.8 FL (81-99); MPV 10.6 FL (7.4-10.4); RBC 4.59 XMIL (4.7-6.1)
[2017-03-28 06:31] LABS: AGAP 14; BUN 17 mg/dL (8-22); CALCIUM 7.6 mg/dL (8.8-10.2); CHLORIDE 97 mmol/L (98-107); COSMO 281; POTASSIUM 4.3 mmol/L (3.5-5.1); SODIUM 133 mmol/L (136-145); TCO2 22 mmol/L (25-35)
[2017-03-28] MEDS: NS 1,000 ML IV SCH ×2 (07:28→15:55)
[2017-03-28] MEDS: PERIDEX MT SCH ×2 (09:31→21:41)
[2017-03-28] MEDS: ACCUPRIL PO SCH (10:26)
[2017-03-28] MEDS: PEPCID PO SCH ×2 (10:26→21:41)
[2017-03-28] MEDS: COLACE PO SCH ×2 (10:27→21:41)
[2017-03-28] MEDS: MAG-OX PO SCH (10:27)
[2017-03-28] MEDS: LOPRESSOR PO SCH ×2 (10:27→21:41)
[2017-03-28] MEDS: LANTUS SUBQ SCH (10:27)
[2017-03-28] MEDS: MORPHINE IV PRN ×2 (11:39→19:36)
[2017-03-28] MEDS ORDERED: NEOSPORIN G.U. IRRIGANT ONE (14:12)
[2017-03-28] MEDS ORDERED: LEVAQUIN 500 MG/D5W 500 MG/100 ML IVPB ONE (15:54)
[2017-03-28] MEDS ORDERED: DIPRIVAN 1% ONE (17:42)
--- NOTE | 2017-03-28 18:08 | OPERATIVE NOTE ---
PROCEDURE DATE: 03/28/2017 SURGEON: Antonio Dunn MD POSTOPERATIVE DIAGNOSIS: History of clot retention with neurogenic bladder, urinary retention, and an indwelling suprapubic tube on Plavix with large bladder tumor. POSTOPERATIVE DIAGNOSIS: History of clot retention with neurogenic bladder, urinary retention, and an indwelling suprapubic tube on Plavix with large bladder tumor. PROCEDURE PERFORMED: 1. Cystoscopic exam. 2. Transurethral resection of bladder tumor. 3. Bilateral retrograde ureteral pyelograms. 4. Placement of a left double-J stent. ANESTHESIA: General via laryngeal mask. FINDINGS: Cystoscopic exam: Urethra-greater than 28-Togolese without stricture. Prostate-status post TURP with wide open channel. Bladder-normal ureteral orifices bilaterally with bullous edema around the trigone consistent with indwelling Vila. There were cellules, diverticula, grade 3 trabeculations. There was a large bladder tumor that was nodular that was at the dome and upper posterior wall. There was significant clot adhered to this. Yesterday he underwent resection of about half of it and now presents for complete resection. After the tumor was completely resected, no other abnormalities were noted. The suprapubic tube was visualized in good position. Right retrograde ureteral pyelogram normal without filling defect. Left retrograde ureteral pyelogram reveals a left distal stricture that appeared to be extrinsic. There was mild hydronephrosis. INDICATIONS FOR PROCEDURE: This 86-year-old male with history of diabetes, neurogenic bladder and urinary retention has a greater than 1 year history of intermittent gross hematuria. He continued on his Plavix. He has undergone bladder irrigation to remove clots and transurethral resection of a large tumor that was initially thought to be large clot but did not act like a large bladder clot. DESCRIPTION OF PROCEDURE: After informed consent was obtained from the patient and family and him receiving IV antibiotics, he was taken the main OR cystoscopy room and placed in the supine position. General anesthesia via laryngeal mask was achieved. He was then placed in a low lithotomy position and prepped and draped in usual sterile fashion for lower abdominal surgery and cystoscopic exam. A 21-Togolese sheath cystoscope was passed to patient's urethra and into the bladder. Findings are as noted above. The cystoscope was removed. Then a 28-Togolese sheath resectoscope was placed. The thick Gyrus loop electrode was placed. The large tumor was resected. This was sent to Pathology. After completion of the resection, the suprapubic tube was removed and the area around the suprapubic tube inspected and no further tumor was visualized. A new 20-Togolese 2-way Vila was passed to the patient's suprapubic tube tract and into the bladder; 10 mL sterile water were placed in the balloon. The Vila was placed to gravity drain. Hemostasis was achieved with the electrocautery. The resectoscope sheath was removed. The 21- Togolese sheath cystoscope was returned to the bladder. An 8-Togolese cone-tipped catheter was passed through the cystoscope and engaged the right ureteral orifice. Contrast was injected. Again, no filling defects were seen. On the left side, the 8-Togolese cone-tipped catheter would not engage ureteral orifice. A 5-Togolese open ended ureteral catheter was placed with a 0.035 ZIPwire. The wire was able to be advanced up into the ureter. The open-ended catheter was able to be pushed through the ureteral orifice and strictured area and up into the ureter. Contrast was injected and again the strictured area was seen that was an extrinsic compression. There were no filling defects in the remaining portion of the left ureter or collecting system. It was mildly hydronephrotic. A 7-Togolese 24 cm double-J stent was passed over the ZIPwire and up into the kidney. The stent removal string was removed. The renal end of the stent was verified by fluoroscopic exam, bladder end directly visualized. The suprapubic tube was placed to gravity drain. The cystoscope was removed. He tolerated the procedure well. ESTIMATED BLOOD LOSS: 25 mL. DISPOSITION: He was taken to recovery room in good condition. cc: Antonio Dunn MD
[2017-03-28] MEDS: LIPITOR PO SCH (21:41)
[2017-03-29] MEDS: HUMULIN R SUBQ SCH ×2 (02:03→08:52)
[2017-03-29] MEDS: NS 1,000 ML IV SCH (06:03)
[2017-03-29 08:14] VITALS: BP 128/52
[2017-03-29] MEDS: COLACE PO SCH (08:50)
[2017-03-29] MEDS: ACCUPRIL PO SCH (08:50)
[2017-03-29] MEDS: PEPCID PO SCH (08:50)
[2017-03-29] MEDS: LOPRESSOR PO SCH (08:51)
[2017-03-29] MEDS: MAG-OX PO SCH (08:51)
[2017-03-29] MEDS: PERIDEX MT SCH (08:51)
[2017-03-29] MEDS: LANTUS SUBQ SCH (08:51)
--- NOTE | 2017-03-31 08:24 | Diag Imaging Result Doc PS360 ---
RETROGRADES 2 OR 3 FILMS - 03/28/2017 INDICATION: Bi-lateral RETROGRADES/ LEFT STENT PLACEMENT / BLADDER TUMOR TECHNIQUE: Bilateral ureterograms. 45 images were obtained. The exam was performed by the patient's urologist. COMPARISON: 03/22/2017 FINDINGS: The right side appears normal. At the left side, there was multifocal mild to moderate narrowing of the ureter at both the proximal and distal ureter suggesting stricturing. These areas were successfully crossed by a wire and a left nephroureteral stent was placed in good position. IMPRESSION: 1. Apparent strictures of the left ureter. 2. Successful placement of left nephroureteral stent. Electronically signed by Chuck García 03/31/2017 8:22 AM
[2017-03-31] MEDS ORDERED: ZEMURON ONE (09:25)
[2017-03-31] MEDS ORDERED: LR 1,000 ML ONE (09:25)
[2017-03-31] MEDS ORDERED: XYLOCAINE-MPF 2% ONE (09:25)
[2017-03-31] MEDS ORDERED: ROBINUL ONE (09:25)
[2017-03-31] MEDS ORDERED: NEOSTIGMINE ONE (09:25)
== END 2017-03-29 09:54 | disposition home or self-care (01) ==
LOC: OR 05:52 → 4N 05:52
PROVIDERS: ADMIT Urology; ATTEND Urology

== ENCOUNTER 2017-04-14 13:17 | Inpatient (IN) ==
[2017-04-14] MEDS ORDERED: NS 500 ML IV ONE (13:43)
[2017-04-14 13:47] LABS: MANUAL DIFF NEEDED? NO
[2017-04-14 13:49] LABS: BASO% 0.8 % (0.0-0.8); EOS# 0.01 X1000 (0.0-0.7); EOS% 0.1 % (0.0-10.0); HEMATOCRIT 42.8 % (42.0-52.0); HEMOGLOBIN 14.5 g/dL (14.0-18.0); IMM GRAN# 0.19 X1000 (0.0-0.04); IMM GRAN% 1.6 % (0.0-0.5); LYMPH% 23.7 % (20.5-51.1); MCH 29.4 PG (27-31); MCHC 33.9 g/dL (33-37); MCV 86.6 FL (81-99); MONO# 1.03 X1000 (0.11-0.59); MONO% 8.7 % (1.7-9.3); MPV 10.6 FL (7.4-10.4); NEUT% 65.1 % (42.2-75.2); PLT 351 X1000 (130-400); RBC 4.94 XMIL (4.7-6.1)
[2017-04-14 14:09] LABS: URINE SOURCE CATH
[2017-04-14 14:15] LABS: AGAP 23; ALBUMIN 3.1 g/dL (3.5-5.0); ALKALINE PHOSPHATASE 132 U/L (32-122); BUN 18 mg/dL (8-22); CALCIUM 8.7 mg/dL (8.8-10.2); CHLORIDE 89 mmol/L (98-107); COSMO 274; GOT 13 U/L (10-34); GPT 13 U/L (10-44); POTASSIUM 5.2 mmol/L (3.5-5.1); SODIUM 127 mmol/L (136-145); TCO2 15 mmol/L (25-35); TOTAL BILIRUBIN 0.37 mg/dL (0.20-1.00); TOTAL PROTEIN 7.3 g/dL (6.3-8.3)
[2017-04-14 14:23] LABS: BILIRUBIN URINE NEGATIVE (NEGATIVE); BLOOD URINE LARGE (NEGATIVE); COLOR RED; GLUCOSE URINE 500 mg/dL (NEGATIVE); LEUKOCYTES URINE SMALL (NEGATIVE); NITRITE URINE NEGATIVE (NEGATIVE); PROTEIN URINE 100 mg/dL (NEGATIVE); SP GRAVITY URINE 1.031; TURBIDITY URINE TURBID (CLEAR); UROBILINOGEN URINE NORMAL (NORMAL)
[2017-04-14 14:38] LABS: URINE RBC TNTC /HPF (<10)
[2017-04-14 14:39] LABS: URINE WBC TNTC /HPF (<10)
[2017-04-14 14:41] LABS: UR EPITHELIAL CELLS <10 /HPF (<10); URINE BACTERIA 1+ /HPF; URINE CULTURE NEEDED? YES
[2017-04-14 14:42] LABS: URINE MICRO REVIEW NEEDED? YES
--- NOTE | 2017-04-14 15:35 | EKG Report ---
Test Performed on : 04/14/2017 1:21:31 PM Test Reason : elevated hr Blood Pressure : / mmHG Vent. Rate : 125 BPM Atrial Rate : 062 BPM P-R Int : 000 ms QRS Dur : 116 ms QT Int : 332 ms P-R-T Axes : 000 099 -05 degrees QTc Int : 479 ms Accelerated Junctional rhythm. with frequent premature ventricular complexes. Right bundle branch block Possible Inferior infarct (cited on or before 22-MAR-2017) Abnormal ECG When compared with ECG of 22-MAR-2017 17:40, Junctional rhythm. has replaced Atrial fibrillation. ST no longer depressed in Anterolateral leads T wave inversion less evident in Anterior leads Unconfirmed Result
--- NOTE | 2017-04-14 15:45 | PROVIDER DOCUMENTATION ---
This chart was entered by Ruddy Perrin Scribdung, acting as scribe for Victorino Grey MD. HPI-Male Problem - General Chief Complaint: Male Stated Complaint: Blood in urine Time Seen by Provider: 04/14/17 13:19 Source: patient, EMS, [facility] records Allergies/Adverse Reactions: Patient Allergies Allergy/AdvReac Type Severity Reaction Status Date / Time No Known Allergies Allergy Verified 03/27/17 06:45 Home Medications: Home Medication List Medication Instructions Recorded Confirmed Last Taken Type Magnesium Oxide [Magnesium] 400 mg PO DAILY 11/10/12 04/14/17 04/14/17 08:00 History 400 MG ATORVAstatin [Lipitor] 10 mg PO QHS 03/09/15 04/14/17 04/13/17 20:00 History 10 MG Quinapril HCl 40 mg PO DAILY 03/09/15 04/14/17 04/14/17 08:00 History 40 MG Sulfamethoxazole/Tmp D.s. [Septra 1 each PO BID #14 tablet 03/29/17 04/14/1712/27 08:00 Rx Ds] 1 EACH Clopidogrel Bisulfate [Plavix] 75 mg PO HS 04/14/17 04/14/17 04/13/17 20:00 History 75 MG Meloxicam 7.5 mg PO DAILY 04/14/17 04/14/17 04/14/17 08:00 History 7.5 MG - History of Present Illness-Male Nature of Presenting Problem: patient is a 86 y/o M that presents with hematuria that began yesterday. Over the past few weeks he has multiple surgeries with . patient has no pain , no fever. Location of Complaint: denies: suprapubic, groin, urethral Quality of Pain: reports: none Severity in ED: reports: moderate Onset/Duration: reports: gradual, 24 hours ago Timing: reports: still present, constant Context/Activities at Onset: reports: none Urinary Symptoms: reports: hematuria. denies: dysuria, low back pain Associated Symptoms: denies: back/neck pain, diarrhea, nausea, vomiting Similar Symptoms Previously?: Yes Recently seen or treated by another doctor?: Yes Review of Systems - Adult - REVIEW OF SYSTEMS - ADULT Constitutional: denies: chills, fever Eyes: reports: no symptoms reported Ears, Nose, Mouth & Throat: reports: no symptoms reported Cardiovascular: denies: chest pain, orthopnea, palpitations, syncope Respiratory: denies: cough, shortness of breath, wheezing Gastrointestinal: denies: abdominal pain, diarrhea, nausea, vomiting Genitourinary: reports: hematuria. denies: frequency, urgency Musculoskeletal: reports: no symptoms reported Integumentary: reports: no symptoms reported Neurological: denies: dizziness/vertigo, headache/migraines Psychiatric: reports: no symptoms reported Endocrine: reports: no symptoms reported Hematologic/Lymphatic: reports: no symptoms reported Allergic/Immunologic: reports: no symptoms reported All Other Systems: Reviewed and Negative Past History - Adult - PAST MEDICAL HISTORY-ADULT Review of Records: reports: Old Records Reviewed, Nursing Assessment Review, Medications Reviewed Cardiovascular: reports: CAD, HTN, hyperlipidemia, [place] Genitourinary: reports: prostatitis, prostate cancer, retention Neurological: reports: CVA, stroke deficits (right sided) Endocrine/Immune: reports: Diabetes - PRIOR SURGERIES/PROCEDURES Surgical/Procedure History: reports: tonsillectomy, CABG, cholecystectomy - IMMUNIZATION STATUS Childhood Immunizations: See Nurse Assessment Flu Vaccine: See Nurse Assessment - FAMILY HISTORY Family History: reviewed, not pertinent - SOCIAL HISTORY Smoking: cigarettes, less than 1 pack/day Living Situation: care facility Physical Exam-General - PHYSICAL EXAM-ADULT Initial Vital Signs Reviewed: Yes - CONSTITUTIONAL General Appearance: alert, no apparent distress - EYES Eyes: PERRL/EOMI, pink conjunctivae - HEAD, EARS, NOSE, MOUTH & THROAT HENMT: normocephalic/atraumatic, moist mucous membranes, normal ENT inspection - NECK Neck: full range of motion, normal inspection - RESPIRATORY Respiratory: lungs clear, normal breath sounds, no respiratory distress, no accessory muscle use - CARDIOVASCULAR Cardiovascular: no gallop, no murmur, tachycardia - GASTROINTESTINAL (ABDOMEN) Abdominal Exam: normal bowel sounds, non tender, soft, other (suprapubic cath) - MUSCULOSKELETAL Extremity: no pedal edema, normal capillary refill - SKIN Integumentary: normal color, warm/dry - NEUROLOGIC Neurologic: motor weakness (right sidedprevious CVA). negative: aphasia, facial droop - PSYCHIATRIC Psych/Mental Status: normal mood/affect, normal thought content, normal thought process, oriented x 3 Progress - PLAN OF CARE/RESULTS Progress/Plan/Lab Results: Vital Signs - 8 hr 04/14/17 13:20 04/14/17 14:44 Temperature 98.0 F Pulse Rate 126 H 120 H Respiratory Rate 20 17 Blood Pressure 144/90 133/83 O2 Sat by Pulse Oximetry 97 Laboratory Results - last 24 hr 04/14/17 04/14/17 04/14/17 13:26 13:26 13:27 WBC 11.80 H RBC 4.94 Hgb 14.5 Hct 42.8 MCV 86.6 MCH 29.4 MCHC 33.9 RDW Std Deviation 13.5 Plt Count 351 MPV 10.6 H Immature Gran % (Auto) 1.6 H Neut % (Auto) 65.1 Lymph % (Auto) 23.7 [place] % (Auto) 8.7 Eos % (Auto) 0.1 Baso % (Auto) 0.8 Immature Gran # (Auto) 0.19 H Neut # (Auto) 7.68 H Lymph # (Auto) 2.80 [place] # (Auto) 1.03 H Eos # (Auto) 0.01 Baso # (Auto) 0.09 Sodium 127 L Potassium 5.2 H Chloride 89 L Carbon Dioxide 15 L Anion Gap 23 BUN 18 Creatinine 0.9 Estimated GFR/1.73 m2 > 60 BUN/Creatinine Ratio 20 Glucose 395 H POC Glucose 330 H Calculated Osmolality 274 Calcium 8.7 L Total Bilirubin 0.37 AST 13 ALT 13 Alkaline Phosphatase 132 H Total Protein 7.3 Albumin 3.1 L Globulin 4.2 Albumin/Globulin Ratio 0.7 Urine Source Urine Color Urine Turbidity Urine pH Ur Specific [place] Urine Protein Ur Glucose (Stick) Ur Ketones (Stick) Urine Blood Urine Nitrite Urine Bilirubin Urobilinogen Dipstick Urine Leukocytes Urine WBC (Auto) Urine RBC (Auto) U Epithel Cells (Auto) Urine Bacteria (Auto) Urine Crystals Small Round Cells Urine Casts Urine Yeast-like Cells 04/14/17 14:07 WBC RBC Hgb Hct MCV MCH MCHC RDW Std Deviation Plt Count MPV Immature Gran % (Auto) Neut % (Auto) Lymph % (Auto) [place] % (Auto) Eos % (Auto) Baso % (Auto) Immature Gran # (Auto) Neut # (Auto) Lymph # (Auto) [place] # (Auto) Eos # (Auto) Baso # (Auto) Sodium Potassium Chloride Carbon Dioxide Anion Gap BUN Creatinine Estimated GFR/1.73 m2 BUN/Creatinine Ratio Glucose POC Glucose Calculated Osmolality Calcium Total Bilirubin AST ALT Alkaline Phosphatase Total Protein Albumin Globulin Albumin/Globulin Ratio Urine Source CATH Urine Color RED Urine Turbidity TURBID Urine pH 6.0 Ur Specific [place] 1.031 Urine Protein 100 A Ur Glucose (Stick) 500 A Ur Ketones (Stick) 20 A Urine Blood LARGE A Urine Nitrite NEGATIVE Urine Bilirubin NEGATIVE Urobilinogen Dipstick NORMAL Urine Leukocytes SMALL A Urine WBC (Auto) TNTC A Urine RBC (Auto) TNTC A U Epithel Cells (Auto) <10 Urine Bacteria (Auto) 1+ Urine Crystals Not Reportable Small Round Cells Not Reportable Urine Casts Not Reportable Urine Yeast-like Cells PRESENT Orders Category Date Time Status CBC WITH ELECTRONIC DIFF [HEME] Stat Lab 04/14/17 13:26 Completed CMP [COMPREHENSIVE METABOLIC PANEL] [CHEM] Stat Lab 04/14/17 13:26 Completed URINALYSIS W/POSS RFLX CULT-1 [URINALYSIS] Stat Lab 04/14/17 14:07 Completed URINE CULTURE [RM] Routine Lab 04/14/17 14:41 Received URINE MANUAL MICROSCOPIC [URINALYSIS] Stat Lab 04/14/17 14:07 Completed 0.9% Sodium Chloride Inj [Ns] 500 ml Med 04/14/17 13:43 Discontinued IV 999 mls/hr EKG [EKG] Stat Ther 04/14/17 13:22 Draft Result Diagrams: 04/14/17 13:26 04/14/17 13:26 - EKG 1 Time of EKG reading by physician:: 13:39 EKG Read and Signed by:: Rizwan Weir EKG Interpretation (*Must complete 3 of following elements*): Abnormal Rate: 125 Rhythm: accelerated junctional rhythm with pvcs QRS: RBB, PVC's ST Wave: non-specific ST changes - CONSULTS/PCP/HOSPITALIST Notification #1 *Consult/PCP/Hospitalist*: Time Discussed: 15:37 Reason/Comments: hematuria Consult Disposition: Will see in ED, Admit Departure - Departure Date of Disposition Decision: 04/14/17 Time of Disposition Decision: 15:37 DIAGNOSIS: Hematuria, UTI (urinary tract infection) Disposition: ADMITTED INPATIENT 09 Certified Medical Emergency: Emergent Condition: Stable Referrals and Follow-Ups: Chino Cervantes [Primary Care Provider] - - Critical Care Note This patient required my direct & personal management of CC.: No This chart was documented by the indicated scribe, (Ruddy Perrin, Scribe) and accurately reflects the services I performed and decisions made by me, Victorino Grey MD, as attested by the provider's signature.
[2017-04-14] MEDS ORDERED: VELTASSA PO ONE (16:45)
[2017-04-14] MEDS: ZOSYN 3.375 GM/NS 3.375 GM/50 ML IVPB IV SCH (18:38)
--- NOTE | 2017-04-14 20:00 | HISTORY AND PHYSICAL ---
PRIMARY CARE PROVIDER: Chino Cervantes MD PRIMARY UROLOGIST: Antonio Dunn MD CHIEF COMPLAINT: Bleeding in his urine. HISTORY OF PRESENT ILLNESS: Mr. Santos Greenfield is an 86-year-old male with a history of CVA, right-sided weakness, coronary artery disease, BPH, status post TURP and suprapubic catheter placement in April 2015. Mr. Greenfield has been followed by Dr. Dunn as outpatient. Apparently, he had some bleeding in the urine back in early March that he presented for. 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 He had a retrograde pyelogram on 03/28/2017 and had a placement of a left nephroureteral stent secondary to strictures by Dr. Dunn. The patient states that his urine had cleared up and over the last 2 days had noticed blood in his urine. He is on Plavix at home. He states he is constipated. His last bowel movement was yesterday. He denies any fever or chills. Denies blood in the stool and has no other complaints. PAST MEDICAL HISTORY: 1. Coronary artery disease, status post CABG. 2. CVA with right-sided residuals. 3. Diabetes mellitus type 2. 4. Hypertension. 5. Hyperlipidemia. 6. BPH status post TURP. 7. Neurogenic bladder status post suprapubic catheter placement. PREVIOUS SURGICAL HISTORY: 1. CABG x2. 2. TURP April 2015. 3. Suprapubic catheter placement, April 2015. 4. Right hip replacement. 5. Cholecystectomy. 6. Right CEA. 7. On 03/28/2016 had a left ureteral stent. SOCIAL HISTORY: Denies smoking, states that he quit 20 years ago. Chews tobacco daily. Lives in [place] with 24 hour caregivers. Denies alcohol or illicit drug use. ALLERGIES: No known drug allergies. HOME MEDICATIONS: Lipitor 10 mg p.o. nightly. Plavix 75 mg p.o. nightly. Magnesium 400 mg p.o. daily. Mobic 7.5 mg p.o. daily. Quinapril 40 mg p.o. daily. Septra 1 tablet p.o. twice daily. REVIEW OF SYSTEMS: Fourteen point review of systems were complete and all were negative except for those mentioned in above HPI. PHYSICAL EXAMINATION: VITAL SIGNS: Temperature 98 degrees, heart rate 107, respiratory rate 18, blood pressure 142/80, saturation 97% on room air. GENERAL: Mr. Santos Greenfield is an 86-year-old, male, who is in no acute distress and is able answer questions appropriately. HEENT: Atraumatic, normocephalic. Pupils equal, round, reactive to light. Extraocular movements intact. CARDIOVASCULAR: S1, S2. Tachycardic rate and rhythm. No rubs, gallops, murmurs. PULMONARY: Clear to auscultation bilateral breath sounds. No accessory muscle use or work of breathing noted. GI: Soft, nontender, nondistended. Positive bowel sounds x4. : Left lower quadrant suprapubic catheter in place with serosanguineous drainage around it. No significant hematuria via the bladder bag. EXTREMITIES: No edema noted. +2 dorsalis and radial pulses. Right-side weakness compared to the left. The left is 5/5. Right is a 4/5 on strength. NEUROLOGIC: Oriented x3. Moves all extremities with right-sided weakness. SKIN: Warm, dry, intact. LABORATORY DATA: White blood cells 11,000, hemoglobin 14, hematocrit 42, platelet count 351,000. Sodium 127, potassium 5.2, BUN 18, creatinine 0.9, glucose 395, calcium 8.7, bilirubin 0.37, AST 13, ALT 13, protein 7.3. Urinalysis 100, protein 500, glucose 20 ketones, large blood, small leukocytes, too numerous to count white blood cells, too numerous to count red blood cells, 1+ bacteria with yeast present. IMAGING: EKG showed sinus tachycardia. Rate was 125. QTc is 479. ASSESSMENT/PLAN: 1. Oscar hematuria via the suprapubic catheter. Dr. Dunn has been consulted. Hemoglobin and hematocrit are stable at 14 and 42, apparently this has been going on over the last 2 days. He has had a recent left ureteral stent placed and may need continuous bladder irrigation. 2. Diabetes mellitus type 2 with significant hyperglycemia with sugars in 300s. We will start him on sliding scale insulin, pattern blood glucoses and a diabetic diet. 3. Hypertension. Continue home medications. 4. Hyperlipidemia. Continue home medications. 5. Recent pyelonephritis, urinary tract infections. We will go ahead and do Zosyn for antibiotic coverage. 6. Hyponatremia. He will be getting IV fluid hydration. 7. Hyperkalemia. Got 1 dose of a Veltassa 16.8 8. Deep venous thrombosis prophylaxis. We will hold Plavix and start on Sequential Compression Devices . 9. Tobacco abuse. He chews tobacco. Cessation was discussed. Dictated by KANIKA Guzman for Nahun Schmidt MD cc: KANIKA Guzman MD I Have seen and examined the patient and I agree with the above plan care. Hematuria with some clots. Urology consult. May need bladder irrigation therapy MTDD
[2017-04-14] MEDS ORDERED: ZOFRAN IV PRN (20:56)
[2017-04-14] MEDS ORDERED: HUMULIN R SUBQ SCH (21:00)
[2017-04-14] MEDS: NS 1,000 ML IV SCH (21:43)
[2017-04-14] MEDS: LIPITOR PO SCH (21:47)
[2017-04-14] MEDS: TYLENOL PO PRN (21:59)
[2017-04-14] MEDS: HUMULIN R SUBQ SCH (23:30)
[2017-04-15] MEDS: ZOSYN 3.375 GM/NS 3.375 GM/50 ML IVPB IV SCH ×4 (00:58→18:57)
[2017-04-15] MEDS ORDERED: CALMOSEPTINE OINTMENT TOP PRN (01:41)
[2017-04-15] MEDS: PRILOSEC PO SCH ×2 (05:55→16:31)
[2017-04-15 06:04] LABS: MANUAL DIFF NEEDED? NO
[2017-04-15 06:12] LABS: BASO% 0.2 % (0.0-0.8); EOS# 0.02 X1000 (0.0-0.7); EOS% 0.2 % (0.0-10.0); HEMATOCRIT 38.6 % (42.0-52.0); HEMOGLOBIN 13.2 g/dL (14.0-18.0); IMM GRAN# 0.17 X1000 (0.0-0.04); IMM GRAN% 1.4 % (0.0-0.5); LYMPH# 2.58 X1000 (1.2-3.4); LYMPH% 21.5 % (20.5-51.1); MCH 29.4 PG (27-31); MCHC 34.2 g/dL (33-37); MONO# 1.13 X1000 (0.11-0.59); MONO% 9.4 % (1.7-9.3); MPV 10.5 FL (7.4-10.4); NEUT% 67.3 % (42.2-75.2); PLT 336 X1000 (130-400); RBC 4.49 XMIL (4.7-6.1)
[2017-04-15 06:19] LABS: INR 1.04; PROTIME 10.9 Seconds (9.2-11.7); PTT 26.4 Seconds (22.0-36.0)
[2017-04-15] MEDS: HUMULIN R SUBQ SCH ×4 (06:31→21:10)
[2017-04-15 06:58] LABS: AGAP 16; ALBUMIN 2.9 g/dL (3.5-5.0); ALKALINE PHOSPHATASE 110 U/L (32-122); BUN 28 mg/dL (8-22); CALCIUM 8.2 mg/dL (8.8-10.2); CHLORIDE 94 mmol/L (98-107); COSMO 279; GOT 11 U/L (10-34); GPT 13 U/L (10-44); MAGNESIUM 2.3 mg/dL (1.5-2.7); POTASSIUM 4.7 mmol/L (3.5-5.1); SODIUM 129 mmol/L (136-145); TCO2 19 mmol/L (25-35); TOTAL BILIRUBIN 0.29 mg/dL (0.20-1.00); TOTAL PROTEIN 6.6 g/dL (6.3-8.3)
[2017-04-15] MEDS: TYLENOL PO PRN ×3 (07:29→21:57)
--- NOTE | 2017-04-15 09:27 | CONSULTATION ---
DATE OF CONSULTATION: 04/15/2017 CONSULTING PHYSICIAN: Dr. Ricci Hernandez with the hospitalist service. REASON FOR CONSULTATION: Gross hematuria. HISTORY OF PRESENT ILLNESS: An 86-year-old male, who is known to Dr. Dunn secondary to history of urinary retention and BPH. He underwent cystoscopy with transurethral resection of the prostate and suprapubic tube placement on in 04/2015. He has been unable to retrain his bladder and has been managed with a suprapubic tube which is exchanged by the home health services. He presented to the hospital in March with bleeding via the suprapubic tube. 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 He was seen by Dr. Dunn and underwent cystoscopy with clot evacuation, fulguration, and bleeding and suprapubic tube change. He was discharged home and re-presented on 03/27/2017, at which point, he underwent cystoscopy and transurethral resection of the bladder tumor. He did not have that resected the 1st time given that he was on Plavix. His pathology revealed necrotic debris and inflammation but no evidence of definitive malignancy. Per patient's daughter, he was doing well until 2 days ago when he developed painless gross hematuria with small clots. He presented to the emergency room where he was irrigated by staff. He was subsequently admitted to [facility] and then transferred here for further care. He currently denies flank pain, suprapubic pain, bladder distention, fevers, or chills. PAST MEDICAL HISTORY: 1. Coronary artery disease. 2. Cerebrovascular accident. 3. Hypertension. 4. Diabetes mellitus. 5. Hyperlipidemia. 6. BPH. 7. Neurogenic bladder. PAST SURGICAL HISTORY: CABG, TURP with suprapubic tube placement. Right hip arthroplasty, cholecystectomy, right carotid arterectomy, left ureteral stent placement and transurethral resection of the bladder tumor. ALLERGIES: No known drug allergies. HOME MEDICATIONS: 1. Lipitor. 2. Magnesium. 3. Mobic. 4. Quinapril. 5. Septra. 6. Plavix. ALLERGIES: No known drug allergies. SOCIAL HISTORY: Former smoker, denies alcohol or illicit drug use. REVIEW OF SYSTEMS: Reviewed and 12 systems negative except for what is in the HPI. PHYSICAL EXAMINATION: Vital Signs: Temperature 98.8 degrees, pulse 110, BP 122/76. General: No acute distress. Pleasant male. HEENT: Normocephalic, atraumatic. Cardiovascular: Regular rhythm. Pulmonary: Bilateral breath sounds. Abdomen: Nontender, nondistended. Suprapubic tube in place draining dark straw-colored urine. No clots seen in the back. Phallus is unremarkable. Meatus is within normal limits. Testes are atrophic but descended bilaterally. Back: No CVA tenderness. Lymphatics: No groin lymphadenopathy. Dermatologic: No obvious skin rashes. Neurologic: Alert and oriented x3. Psychiatric: Appropriate mood and affect. PERTINENT LABORATORY DATA: White cell count of 12,000, hematocrit of 38.6, INR 1.04, creatinine 0.9. His urinalysis on 04/14/2017 revealed white cells, red cells, and 1+ bacteria. PERTINENT IMAGES: CT abdomen and pelvis with IV contrast on 03/22/2017 per HPI. ASSESSMENT AND PLAN: 1. An 86-year-old male with neurogenic bladder managed with suprapubic tube who has had episodes of hematuria in the past. He appears to have bacteriuria which would be expected with an indwelling suprapubic tube but that likely could have been the cause of his hematuria. I have discussed with the patient and his daughter that given his recent cystoscopy with retrograde pyelograms and a CT scan within the last month time, I would prefer to be conservative and not repeat CT scan or cystoscopic evaluation. We discussed that he is on appropriate antibiotics which could be [place] to oral regimen once urine culture results come back. I have personally manually flushed the catheter several times with return of light straw-colored fluid. PLAN: 1. I do not recommend proceeding with cystoscopy or perform as a T scan at this time. 2. Keep suprapubic tube to gravity drainage. 3. I agree with broad-spectrum antibiotics until final culture is revealed. 4. Once we have the culture results, I would recommend switching him to appropriate oral antibiotics for a total course of 7-10 days. Thank you for consultation. cc: Masoud Avitia MD
[2017-04-15] MEDS: ACCUPRIL PO SCH (09:51)
[2017-04-15] MEDS: MAG-OX PO SCH (09:51)
[2017-04-15] MEDS: NS 1,000 ML IV SCH ×2 (12:32→16:29)
[2017-04-15] MEDS ORDERED: LANTUS SUBQ ONE ×2 (13:08→14:18)
[2017-04-15] MEDS ORDERED: VANCOMYCIN IV PER PHARMACY MISC SCH (14:30)
[2017-04-15] MEDS ORDERED: INSULIN PEN NEEDLES ONE (15:36)
[2017-04-15] MEDS ORDERED: VANCOMYCIN 2,000 MG in NS 500 ML IV ONE (16:00)
--- NOTE | 2017-04-15 16:19 | PROGRESS NOTE ---
DATE: 04/15/2017 SUBJECTIVE: The patient states that he feels"crummy." Denies any pain at this time. OBJECTIVE: Vital Signs: Temperature 97.4 degrees, heart rate 100, respiratory rate 20, BP 120/67, 100% on room air. General: Mr. Greenfield is an 86-year-old male found resting and lying on the bed. He seems well-nourished and answer questions appropriately.. CV: S1, S2 auscultated. Rate regular and rhythm. No murmurs, gallops or rubs. Respiratory: Lung sounds clear and equal throughout. No wheezing, rhonchi, crackles noted. GI: Bowel sounds auscultated in all 4 quadrants. Abdomen is nontender, nondistended. No abdominal bruits noted. : Patient does have a suprapubic catheter in. Catheter site revealed purulent drainage that was noted. LABS: White cell count 12, hemoglobin 13, hematocrit 38, platelets 336,000. Sodium 129, potassium 4.7, chloride 94, BUN 28, creatinine 0.9, glucose 356. ASSESSMENT AND PLAN: 1. Hematuria with a suprapubic catheter. Hemoglobin and hematocrit is stable at this time. The catheter was flushed by urology and recommended that we flush as needed. 2. Diabetes type 2, uncontrolled. Patient's blood sugars are running anywhere from 215 up into the high 300s. We added back his home medication regimen. 3. Suprapubic catheter site possible infection. When culture was ordered, vancomycin was started and wound care consultation was put in. Urine culture is still pending. 4. Hyponatremia. Patient's sodium today is 129. We went up on his normal saline infusion to 125 mL per hour. 5. Hyperkalemia, resolved. Patient's potassium was 4.7. 6. Resuscitation status. This was discussed with the patient and the family. Patient stated that he does not want any life-saving measures performed. He was made a Do Not Resuscitate level 1. 7. Deep venous thrombosis prophylaxis. Plavix still held. Sequential compression devices have been applied. Dictated by KANIKA Guzman for Ricci Hernandez MD cc: KANIKA Guzman MD pt examined, [facility] with [facility] M[facility]
[2017-04-15] MEDS: LIPITOR PO SCH (21:11)
[2017-04-16] MEDS: HUMULIN R SUBQ SCH ×5 (01:21→21:20)
[2017-04-16] MEDS: ZOSYN 3.375 GM/NS 3.375 GM/50 ML IVPB IV SCH ×4 (01:23→17:32)
--- NOTE | 2017-04-16 05:20 | EKG Report ---
Test Performed on : 04/15/2017 06:09:51 AM Test Reason : chest pain Blood Pressure : / mmHG Vent. Rate : 112 BPM Atrial Rate : 112 BPM P-R Int : 128 ms QRS Dur : 134 ms QT Int : 390 ms P-R-T Axes : 000 071 -17 degrees QTc Int : 532 ms Sinus tachycardia. Right bundle branch block Inferior infarct (cited on or before 22-MAR-2017) Abnormal ECG When compared with ECG of 14-APR-2017 13:21, (Unconfirmed) Sinus rhythm. has replaced Junctional rhythm. Confirmed by Sánchez DENTON, MRamon Abdullahi ([id number]) on 04/16/2017 8:19:44 AM
[2017-04-16 05:30] LABS: MANUAL DIFF NEEDED? NO
[2017-04-16 05:43] LABS: HEMOGLOBIN A1C 11.7 % (4.8-6.0)
[2017-04-16 06:22] LABS: AGAP 10; ALBUMIN 2.4 g/dL (3.5-5.0); ALKALINE PHOSPHATASE 81 U/L (32-122); BASO% 0.2 % (0.0-0.8); BUN 26 mg/dL (8-22); CALCIUM 7.5 mg/dL (8.8-10.2); CHLORIDE 100 mmol/L (98-107); COSMO 269; EOS# 0.09 X1000 (0.0-0.7); EOS% 0.8 % (0.0-10.0); GOT 9 U/L (10-34); GPT 8 U/L (10-44); HEMATOCRIT 32.3 % (42.0-52.0); HEMOGLOBIN 10.9 g/dL (14.0-18.0); IMM GRAN# 0.14 X1000 (0.0-0.04); IMM GRAN% 1.2 % (0.0-0.5); LYMPH# 2.88 X1000 (1.2-3.4); LYMPH% 24.3 % (20.5-51.1); MAGNESIUM 2.1 mg/dL (1.5-2.7); MCH 29.1 PG (27-31); MCHC 33.7 g/dL (33-37); MCV 86.4 FL (81-99); MONO# 1.22 X1000 (0.11-0.59); MONO% 10.3 % (1.7-9.3); MPV 10.2 FL (7.4-10.4); NEUT% 63.2 % (42.2-75.2); PLT 285 X1000 (130-400); POTASSIUM 3.7 mmol/L (3.5-5.1); RBC 3.74 XMIL (4.7-6.1); SODIUM 131 mmol/L (136-145); TCO2 21 mmol/L (25-35); TOTAL BILIRUBIN 0.36 mg/dL (0.20-1.00); TOTAL PROTEIN 5.3 g/dL (6.3-8.3)
[2017-04-16] MEDS: PRILOSEC PO SCH (06:32)
[2017-04-16] MEDS ORDERED: MILK OF MAGNESIA PO PRN (08:11)
[2017-04-16] MEDS: AMARYL PO SCH (08:28)
[2017-04-16] MEDS: JANUVIA PO SCH (08:28)
[2017-04-16] MEDS: ACCUPRIL PO SCH (08:28)
[2017-04-16] MEDS: MAG-OX PO SCH (08:28)
[2017-04-16] MEDS: NS 1,000 ML IV SCH (08:39)
[2017-04-16] MEDS ORDERED: NS 1,000 ML ONE (08:40)
[2017-04-16] MEDS ORDERED: LANTUS SUBQ SCH ×2 (09:00)
[2017-04-16] MEDS: TYLENOL PO PRN ×2 (11:20→19:31)
[2017-04-16] MEDS ORDERED: DITROPAN PO PRN (11:40)
[2017-04-16] MEDS: VANCOMYCIN 1,450 MG in NS 250 ML IV SCH (15:51)
--- NOTE | 2017-04-16 16:41 | PROGRESS NOTE ---
DATE: 04/16/2017 SUBJECTIVE: Patient has no focal complaints except he does not feel well and he does not feel like he is getting any better. There has been no progress. OBJECTIVE: Vital Signs: Blood pressure 130/49, heart rate of 84, respiratory rate 16, temperature 98.7, 97% on room air. Cardiovascular: Regular rate and rhythm. Pulmonary: Bilateral breath sounds. Clear to auscultation. GI: Soft, nontender, nondistended. Bowel sounds are positive. LABORATORY DATA: White count of 11.8, hemoglobin and hematocrit 10 and 32, platelets 285. Sodium 131. A1c is 11.7, glucose at 253. PROBLEM LIST: 1. Hematuria with recent bladder resection, suprapubic catheter. Still persists although is not as intense as it was previously. Still felt to be infectious etiology. 2. Diabetes is not controlled. We will increase Lantus to 25 units daily. His A1c is 11.7. He is on Januvia and metformin as well. 3. Suprapubic catheter site infection. We will continue treatments and follow closely. He is on vancomycin at this point. DISPOSITION: Pending clinical improvement, will continue to follow very closely. cc: Ricci Hernandez MD
--- NOTE | 2017-04-16 21:04 | PROGRESS NOTE ---
DATE: 04/16/2017 SUBJECTIVE: Mr. Greenfield reports a decent night overnight. He denies pain associated with suprapubic catheter. OBJECTIVE: Vital Signs: Temperature 98.7 degrees, pulse 84, blood pressure 130/49. General: No acute distress. Abdomen: Nontender, nondistended. Suprapubic tube in place draining light straw-colored fluid in the tube and somewhat darker brownish fluid in the bag. PERTINENT LABORATORY DATA: White cell count 12,000, hematocrit 32, creatinine of 0.7. His urine is growing gram-negative rods with final identification to follow. ASSESSMENT: An 86-year-old male who has gross hematuria likely associated with a urinary tract infection. He recently had procedure in the form of cystoscopy and ureteral stent placement as well as evacuation of clot. His urine seems to have improved. He has not had to be irrigated since yesterday when I personally did it. At that time there were no obvious clots. I have discussed with the patient continued observation and urinary tract infection treatment. PLAN: 1. No genitourinary intervention needed at this point. 2. Once the bacteria is identified with susceptibilities revealed, recommend 10-14 day course of antibiotics. 3. We will follow as needed. cc: Masoud Avitia MD
[2017-04-16] MEDS: LIPITOR PO SCH (21:21)
[2017-04-16] MEDS ORDERED: MIRALAX PO PRN (22:45)
[2017-04-17] MEDS: ZOSYN 3.375 GM/NS 3.375 GM/50 ML IVPB IV SCH ×3 (00:14→11:54)
[2017-04-17] MEDS: TYLENOL PO PRN (05:23)
[2017-04-17] MEDS: PRILOSEC PO SCH ×2 (05:24→06:10)
[2017-04-17] MEDS: HUMULIN R SUBQ SCH ×5 (06:09→21:34)
[2017-04-17 06:19] LABS: MANUAL DIFF NEEDED? NO
[2017-04-17 06:29] LABS: BASO% 0.3 % (0.0-0.8); EOS# 0.08 X1000 (0.0-0.7); EOS% 0.8 % (0.0-10.0); HEMATOCRIT 29.6 % (42.0-52.0); HEMOGLOBIN 9.8 g/dL (14.0-18.0); IMM GRAN% 1.1 % (0.0-0.5); LYMPH% 25.3 % (20.5-51.1); MCH 29.2 PG (27-31); MCHC 33.1 g/dL (33-37); MCV 88.1 FL (81-99); MONO# 0.88 X1000 (0.11-0.59); MONO% 9.3 % (1.7-9.3); MPV 10.4 FL (7.4-10.4); NEUT% 63.2 % (42.2-75.2); PLT 224 X1000 (130-400); RBC 3.36 XMIL (4.7-6.1)
[2017-04-17 07:08] LABS: AGAP 8; BUN 23 mg/dL (8-22); CALCIUM 7.2 mg/dL (8.8-10.2); CHLORIDE 101 mmol/L (98-107); COSMO 267; POTASSIUM 4.2 mmol/L (3.5-5.1); SODIUM 131 mmol/L (136-145); TCO2 22 mmol/L (25-35)
[2017-04-17] MEDS: JANUVIA PO SCH (08:47)
[2017-04-17] MEDS: ACCUPRIL PO SCH (08:47)
[2017-04-17] MEDS: AMARYL PO SCH (08:47)
[2017-04-17] MEDS: LANTUS SUBQ SCH (08:47)
[2017-04-17] MEDS: MAG-OX PO SCH (08:47)
[2017-04-17] MEDS: VANCOMYCIN 1,450 MG in NS 250 ML IV SCH (16:13)
--- NOTE | 2017-04-17 16:37 | PROGRESS NOTE ---
DATE: 04/17/2017 SUBJECTIVE: The patient feels a little bit better, and this is the first day he says he feels better. Urine looks like it has cleared up. I do not appreciate any gross hematuria today. There is a lot of sediment in there. OBJECTIVE: Vital Signs: Blood pressure 126/58, heart rate of 97, respiratory rate of 20, temperature 98.1 degrees, satting 97% on room air. Cardiovascular: Regular rate and rhythm. Pulmonary: Bilateral breath sounds. Clear to auscultation. GI: Soft, nontender, nondistended. Bowel sounds are positive. LABORATORY DATA: White count 9.5, hemoglobin and hematocrit of 9 and 29, platelets 224. Sodium was 131, calcium 7.2. His micro shows Pseudomonas which is sensitive to amikacin, gentamicin, Levaquin and tobramycin. There are no sensitivities to piperacillin, tazobactam. Usually that is effective and clinically I think it has been working. We will switch him to Levaquin though because it will be more convenient to discharge him on this. DIAGNOSES: 1. Pseudomonas urinary tract infection. Hemorrhagic cystitis. We will continue intravenous antibiotics and follow. Clinically he is improving. 2. Type 2 diabetes. Overall, his sugars have improved, although his long-term control has been poor. His A1c is 11.7. We titrated up on his Lantus. He seems to be doing okay. 3. Superficial port infection with suprapubic catheter. That also seems to be clinically improved. He has been on vancomycin. I think we can transition him to Levaquin; that should be somewhat effective disposition. We will work on ambulation and try to get him up and around. He does seem very weak with all these processes. Will have to follow closely. 4. Hypertension. Appears to be stable. cc: Ricci Hernandez MD
[2017-04-17] MEDS: LEVAQUIN 500 MG/D5W 500 MG/100 ML IVPB IV SCH (18:01)
[2017-04-17] MEDS: LIPITOR PO SCH ×2 (19:38→21:34)
[2017-04-18] MEDS: TYLENOL PO PRN (02:56)
[2017-04-18 06:10] LABS: MANUAL DIFF NEEDED? NO
[2017-04-18] MEDS: PRILOSEC PO SCH (06:10)
[2017-04-18] MEDS: HUMULIN R SUBQ SCH ×2 (06:16→12:47)
[2017-04-18 06:18] LABS: BASO% 0.2 % (0.0-0.8); EOS# 0.11 X1000 (0.0-0.7); EOS% 1.3 % (0.0-10.0); HEMATOCRIT 27.9 % (42.0-52.0); HEMOGLOBIN 9.2 g/dL (14.0-18.0); IMM GRAN# 0.11 X1000 (0.0-0.04); IMM GRAN% 1.3 % (0.0-0.5); LYMPH# 2.65 X1000 (1.2-3.4); LYMPH% 31.1 % (20.5-51.1); MCH 28.9 PG (27-31); MCV 87.7 FL (81-99); MONO# 0.88 X1000 (0.11-0.59); MONO% 10.3 % (1.7-9.3); MPV 10.1 FL (7.4-10.4); NEUT% 55.8 % (42.2-75.2); PLT 225 X1000 (130-400); RBC 3.18 XMIL (4.7-6.1)
[2017-04-18 06:42] LABS: AGAP 8; BUN 13 mg/dL (8-22); CALCIUM 7.4 mg/dL (8.8-10.2); CHLORIDE 103 mmol/L (98-107); COSMO 267; POTASSIUM 4.3 mmol/L (3.5-5.1); SODIUM 134 mmol/L (136-145); TCO2 23 mmol/L (25-35)
[2017-04-18] MEDS: MAG-OX PO SCH (08:14)
[2017-04-18] MEDS: ACCUPRIL PO SCH (08:14)
[2017-04-18] MEDS: AMARYL PO SCH (08:14)
[2017-04-18] MEDS: JANUVIA PO SCH (08:14)
[2017-04-18] MEDS: LANTUS SUBQ SCH (08:15)
[2017-04-18 13:19] VITALS: BP 108/50
--- NOTE | 2017-04-18 15:06 | PROGRESS NOTE ---
DATE: 04/18/2017 SUBJECTIVE: Patient has no focal complaints. OBJECTIVE: Vital signs: Blood pressure 108/50, heart rate 93, respiratory rate 16, temperature 99 degrees, 98% on room air. Cardiovascular: Regular rate and rhythm. Pulmonary: Bilateral breath sounds. Clear to auscultation. GI: Soft, nontender, nondistended. Bowel sounds are positive. LABORATORY DATA: White count 8, hemoglobin and hematocrit 9 and 27, platelets 225,000. Sodium is up to 134. PROBLEM LIST: 1. Hematuria, Pseudomonas urinary tract infection, hemorrhagic cystitis. He is responding well to antibiotics right now. He is on Levaquin which is what we will discharge him on. He does not have any bacteremia although no blood cultures were checked. The wound culture is still pending and that is what is keeping him here at this point. 2. Diabetes. Overall has improved, actually fairly well controlled now that we have stopped his Lantus so we will continue to monitor closely. 3. Depression. He had several episodes where he was tearful I think when we brought up possibility of him needing inpatient rehab so I am going to start some Celexa and work with him with that. 4. Hypertension. Appears to be stable. 5. Disposition. Again he is very adamant about not going to rehab. I think there is some concern about that he will end up needing long-term care. He says he has 24 hour care at home so we will attempt to get him home the next 1-2 days pending his issues. He has had home health previously and we will resume that care at discharge. cc: Ricci Hernandez MD
[2017-04-18] MEDS: LEVAQUIN 500 MG/D5W 500 MG/100 ML IVPB IV SCH (15:39)
--- NOTE | 2017-04-18 17:50 | PROGRESS NOTE ---
DATE: 04/18/2017 Mr. Greenfield reports decent night overnight. His urine is nearly clear. He denies discomfort. OBJECTIVE: Vital Signs: T 98.7, P 93, BP 126/53. General: No acute distress. Abdomen: Nontender, nondistended. Suprapubic tube in place draining clear urine at this point. PERTINENT LABORATORY DATA: White cell count of 8000, hematocrit of 28, creatinine of 0.6. Microbiology: His urine culture reveals Pseudomonas aeruginosa which was susceptible to Levaquin. ASSESSMENT/PLAN: 86-year-old male with gross hematuria likely related to a recent urinary tract infection with urine now clearing up on appropriate antibiotics. He is cleared to discharge from Urologic standpoint but we will defer ultimate discharge to Dr. Hernandez and his team. I have discussed with Dr. Hernandez that Mr. Greenfield can resume his anticoagulation at any given time and I recommended total course of 10-14 days of antibiotic orally. He will have his suprapubic tube exchange as per routine and see Dr. Dunn in the near future for a followup. cc: Masoud Avitia MD
[2017-04-18] MEDS ORDERED: CELEXA PO SCH (21:00)
--- NOTE | 2017-05-10 22:47 | DISCHARGE SUMMARY ---
ADMISSION DATE: 04/14/2017 DISCHARGE DATE: 04/18/2017 DISCHARGE DIAGNOSES: 1. Pseudomonas urinary tract infection. 2. Hemorrhagic cystitis. 3. Diabetes. 4. Depression. 5. Hypertension. ADMISSION DIAGNOSIS: 1. Hematuria with concern of urinary tract infection. 2. Diabetes. 3. Hypertension. 4. Dyslipidemia. CONSULTATIONS: Dr. Avitia urology recommended suprapubic catheter and antibiotics. HOSPITAL COURSE: Patient admitted on the for hematuria status post TURP and I think he has a chronic indwelling suprapubic, he has had stents previously, he was admitted, placed on IV antibiotics. There was concern over continuous bladder irrigation. I think he was placed on Zosyn diabetes, he was placed on vancomycin. A1c is 11.7. He did grow out Pseudomonas that was sensitive to amikacin, gentamicin, Levaquin and tobramycin. We did adjust his sugars because they were having issues with it which probably contributed to his recurrent infections. On the I was concerned about his ability to get up and around but apparently he really is not very active at home and he has 24 hour care including family members. They did not want to go to rehab. I think there was concerns about going to long-term care and he had resumed care at discharge and he was set up with home health and home PT. DISCHARGE MEDICATIONS: Lipitor 10 daily, Plavix 75 daily, Levaquin 500 daily for 7 days, magnesium oxide 400 daily, meloxicam 7.5 daily, MiraLAX 17 daily, quinapril 40 daily. FOLLOWUP: He will need to follow up with PCP in 1-[address] Dunn in 2-[address] Cervantes and Dr. Dunn. 32 minute discharge. cc: Ricci Hernandez MD
== END 2017-04-18 17:08 | disposition home health service (06) ==
LOC: SUPCPDRO → ED 13:17 → EDIPHOLD 18:22 → SUATTDRO 18:22 → 4N 19:48
PROVIDERS: ATTEND Internal Medicine